=== PATIENT | female | born 1930 | race Caucasian/White ===

== ENCOUNTER 2017-06-25 21:13 | Observation (INO) | payer MEDICARE, BC ==
[2017-06-25] MEDS ORDERED: Sodium Chloride 0.9% 2.5 ML Syringe FLUSH PRN (21:35)
[2017-06-25] MEDS ORDERED: Sodium Chloride 0.9% 10 ML Syringe FLUSH PRN (21:35)
[2017-06-25] MEDS ORDERED: Sodium Chloride 0.9% 1,000 ML IV ONE (21:36)
--- NOTE | 2017-06-25 21:51 | EDM.PDOC ---
ED HPI GENERAL MEDICAL PROBLEM - General Chief Complaint: General Stated Complaint: FEELING WEAK Time Seen by Provider: 06/25/17 21:46 - History of Present Illness INITIAL COMMENTS - FREE TEXT/NARRATIVE: HISTORY AND PHYSICAL: []86-year-old female who is quite frail looking, comes from home by family with concerns over her weakness tonight unable to walk History of Present Illness: []Sister and niece reports that she has been unable to remember things and believes family members who have are still alive. Over the last several months has lost quite a bit of weight. Tonight became weak and was unable to walk. Patient has seen Dr. Chema Burton in the past. Patient has anti-hypertensive medication but does not always take it. Review of Systems: As per history of present illness and below otherwise all systems reviewed and negative. Past medical history: As per history of present illness and as reviewed below otherwise noncontributory. Surgical history: As per history of present illness and as reviewed below otherwise noncontributory. Social history: No reported history of drug or alcohol abuse. Family history: As per history of present illness and as reviewed below otherwise noncontributory. Physical exam: Frail looking elderly woman who is quite pleasant, answers questions in full sentences, HEENT: Atraumatic, normocehpalic, pupils reactive, negative for conjunctival pallor or scleral icterus, mucous membranes moist, throat clear, neck supple, nontender, trachea midline. Lungs: Clear to auscultation, breath sounds equal bilaterally, chest non tender. Heart: S1S2, regular, negative for clicks, rubs, or JVD. EKG obtained showing sinus tachycardia at 103. Abdomen: Soft, nondistended, nontender. Negative for masses or hepatossplenmegaly. Negative for costovertebral tenderness. Pelvis: Stable nontender. Genitourinary: Deferred. Rectal: Deferred Extremities: Atraumatic, negative for cords or calf pain. Neurovascular unremarkable. Neuro: Awake, alert, oriented. Cranial nerves II through XII unremarkable. Cerebellum unremarkable. Motor and sensory unremarkable throughout. Exam nonfocal. Diagnostics: [CBC CMP head CT UA urine culture] Therapeutics: []Normal saline bolus 500ml then run at 125/hr Impression: []#1 weakness #2 dementia Plan: []Admit for weakness Definitive disposition and diagnosis as appropriate pending reevaluation and review of above. Onset: Gradual Duration: Chronic, Getting Worse Location: Reports: Generalized Severity: Moderate - Related Data Allergies Allergy/AdvReac Type Severity Reaction Status Date / Time No Known Allergies Allergy Verified 06/25/17 21:24 ED ROS GENERAL - Review of Systems Review Of Systems: ROS reveals no pertinent complaints other than HPI. ED EXAM, GENERAL - Physical Exam Exam: See Below (See dictation) EKG INTERPRETATION EKG Date: 06/25/17 Rhythm: Other (Sinus tachycardia) Rate (Beats/Min): 103 Comparison: NA - No Prior EKG Course - Vital Signs Last Recorded V/S: Last Vital Signs Temp 36.6 C 06/25/17 21:24 Pulse 101 H 06/25/17 21:24 Resp 16 06/25/17 21:24 BP 93/50 L 06/25/17 21:24 Pulse Ox 97 06/25/17 21:24 - Orders/Labs/Meds Orders: Active Orders 24 hr Category Date Time Status EKG Documentation Completion [RC] STAT Care 06/25/17 21:35 Ordered Oxygen Therapy, ED [RC] ASDIRECTED Care 06/25/17 21:35 Ordered Chest 1V Frontal [CR] Stat Exams 06/25/17 21:35 Ordered Head wo Cont [CT] Stat Exams 06/25/17 21:35 Ordered CBC WITH AUTO DIFF [HEME] Stat Lab 06/25/17 21:35 Ordered COMPREHENSIVE METABOLIC PN,CMP [CHEM] Stat Lab 06/25/17 21:35 Ordered TROPONIN I [CHEM] Stat Lab 06/25/17 21:35 Ordered UA W/MICROSCOPIC [URIN] Stat Lab 06/25/17 21:35 Uncollected Sodium Chloride 0.9% [Normal Saline] 1,000 ml Med 06/25/17 21:36 Ordered IV STAT Sodium Chloride 0.9% [Saline Flush] Med 06/25/17 21:35 Ordered 10 ml FLUSH ASDIRECTED PRN Sodium Chloride 0.9% [Saline Flush] Med 06/25/17 21:35 Ordered 2.5 ml FLUSH ASDIRECTED PRN Saline Lock Insert [OM.PC] Stat Oth 06/25/17 21:35 Ordered Medication Orders Sodium Chloride (Normal Saline) 1,000 mls @ 999 mls/hr IV STAT ONE Stop: 06/25/17 22:36 Sodium Chloride (Saline Flush) 10 ml FLUSH ASDIRECTED PRN PRN Reason: Keep Vein Open Sodium Chloride (Saline Flush) 2.5 ml FLUSH ASDIRECTED PRN PRN Reason: Keep Vein Open Meds: Medications Generic Name Dose Route Start Last Admin Trade Name Freq PRN Reason Stop Dose Admin Sodium Chloride 1,000 mls @ 999 mls/hr 06/25/17 21:36 Normal Saline IV 06/25/17 22:36 STAT ONE Sodium Chloride 10 ml 06/25/17 21:35 Saline Flush FLUSH ASDIRECTED PRN Keep Vein Open Sodium Chloride 2.5 ml 06/25/17 21:35 Saline Flush FLUSH ASDIRECTED PRN Keep Vein Open Departure - Departure Time of Disposition: 21:53 Disposition: Admitted As Inpatient 66 Condition: Fair Clinical Impression: Weakness generalized Hypertension Qualifiers: Hypertension type: unspecified Qualified Code(s): I10 - Essential (primary) hypertension - Discharge Information Forms: ED Department Discharge - My Orders Last 24 Hours: My Active Orders 06/25/17 21:35 EKG Documentation Completion [RC] STAT Oxygen Therapy, ED [RC] ASDIRECTED Chest 1V Frontal [CR] Stat Head wo Cont [CT] Stat CBC WITH AUTO DIFF [HEME] Stat COMPREHENSIVE METABOLIC PN,CMP [CHEM] Stat TROPONIN I [CHEM] Stat UA W/MICROSCOPIC [URIN] Stat Sodium Chloride 0.9% [Saline Flush] 10 ml FLUSH ASDIRECTED PRN Sodium Chloride 0.9% [Saline Flush] 2.5 ml FLUSH ASDIRECTED PRN Saline Lock Insert [OM.PC] Stat 06/25/17 21:36 Sodium Chloride 0.9% [Normal Saline] 1,000 ml IV STAT - Assessment/Plan Last 24 Hours: My Active Orders 06/25/17 21:35 EKG Documentation Completion [RC] STAT Oxygen Therapy, ED [RC] ASDIRECTED Chest 1V Frontal [CR] Stat Head wo Cont [CT] Stat CBC WITH AUTO DIFF [HEME] Stat COMPREHENSIVE METABOLIC PN,CMP [CHEM] Stat TROPONIN I [CHEM] Stat UA W/MICROSCOPIC [URIN] Stat Sodium Chloride 0.9% [Saline Flush] 10 ml FLUSH ASDIRECTED PRN Sodium Chloride 0.9% [Saline Flush] 2.5 ml FLUSH ASDIRECTED PRN Saline Lock Insert [OM.PC] Stat 06/25/17 21:36 Sodium Chloride 0.9% [Normal Saline] 1,000 ml IV STAT
[2017-06-25 22:19] LABS: CHLORIDE,CL 106 mmol/L (98-110); SODIUM,NA 142 mmol/L (136-146)
[2017-06-26] MEDS: Multivitamins with Iron/Calcium/Folic Acid/Minerals Tab PO SCH (08:09)
[2017-06-26] MEDS: BETAXOLOL HCL 10 MG PO SCH (08:10)
[2017-06-26] MEDS: Hydrochlorothiazide/Triamterene 50-75 MG Tab PO SCH (08:12)
[2017-06-26] MEDS ORDERED: Hydrochlorothiazide/Triamterene 50-75 MG Tab PO SCH (09:00)
--- NOTE | 2017-06-26 11:33 | CT ---
EXAM DATE: 06/25/17 PATIENT'S AGE: 86 Patient: MARVIN SEGOVIA Facility: [place], [place] Site . Site : 1930 Study: CT Head [id number] 10:05:35 PM Ordering Physician: Doctor Marie Final Report: INDICATION: Weakness TECHNIQUE: Head CT without contrast. COMPARISON: None FINDINGS: CSF spaces: Within normal limits for age. Brain parenchyma: There are nonspecific low attenuation white matter changes consistent with chronic microvascular disease. No sign of mass, hemorrhage, or midline shift. Remote bilateral basal ganglia lacunar infarctions. Skull base and calvarium: The visualized paranasal sinuses and mastoid air cells demonstrate no acute or significant findings. The visualized orbits are grossly unremarkable. No skull fractures. There is intracranial atherosclerosis. IMPRESSION: 1. No acute findings. 2. Nonspecific white matter disease, typical of chronic microvascular disease. Please note that all CT scans at this facility use dose modulation, iterative reconstruction, and/or weight-based dosing when appropriate to reduce radiation dose to as low as reasonably achievable. Dictated by Idalia Black MD @ Jun 25 2017 10:36PM (Electronic Signature) Report Signed by Proxy. [facility]
--- NOTE | 2017-06-26 11:34 | CR ---
EXAM DATE: 06/25/17 PATIENT'S AGE: 86 Patient: MARVIN SEGOVIA Facility: [place], [place] Site . Site : 1930 Study: XRay Chest [id number]/22/2017 10:13:25 PM Ordering Physician: Doctor Marie Final Report: INDICATION: Weakness TECHNIQUE: Chest 1 view. COMPARISON: None FINDINGS: Cardiovascular and mediastinum: Heart size and vasculature are normal in caliber and appearance. Mediastinum is within normal limits. Lungs and pleural space: Possible ill-defined opacity right upper lobe. No sign of pleural effusion. No pneumothorax. Bones and soft tissues: No significant findings. IMPRESSION: Possible ill-defined opacity right upper lobe versus overlapping of lung markings. Followup recommended. Dictated by Chema Zeng MD @ 06/25/2017 10:41:38 PM Dictated by: Chema Zeng MD @ 06/25/2017 22:41:45 (Electronic Signature) Report Signed by Proxy. [facility]
[2017-06-26] MEDS: cefTRIAXone 1 GM in Premix Bag 1 BAG IV SCH (12:22)
--- NOTE | 2017-06-26 18:01 | PCM.HP ---
H&P History of Present Illness - General Date of Service: 06/26/17 Admit Problem/Dx: This is a 86-year-old female who's here secondary to weakness and confusion over the past 3 weeks. Possible dementia. Patient's sister states that she has progressively become increasingly confused speaking with people who have . Unsure about whether she is along with poor memory loss. Patient's sister denies patient having any recent falls that she is aware of. When speaking with the patient she also denies having any recent falls. Patient has not had any febrile issues, and no complaints of any nausea, vomiting, diarrhea, constipation. No shortness of breath. Increasing weakness and dementia/ shortness of breath patient's family brought her into the ER. Head CT and chest x-ray as well as basic labs were done. Decision was made to admit the patient secondary to her ambulatory status. Source of Information: Patient, Family - History of Present Illness Onset of Symptoms: Reports: Gradual - Related Data Allergies/Adverse Reactions: Allergies Allergy/AdvReac Type Severity Reaction Status Date / Time No Known Allergies Allergy Verified 06/25/17 21:24 Home Medications: Home Meds Betaxolol HCl [Betaxolol] 10 mg PO DAILY 06/25/17 [History] Multivits,Ca,Minerals/Iron/FA [One-A-Day Women's] 1 tab PO DAILY 06/25/17 [ History] Triamterene/Hydrochlorothiazid [Triamterene-HCTZ 75-50 MG] 1 tab PO DAILY [History] Past Medical History HEENT History: Reports: Impaired Vision, Macular Degeneration Cardiovascular History: Reports: High Cholesterol, Hypertension Respiratory History: Reports: None Gastrointestinal History: Reports: None Genitourinary History: Reports: None Musculoskeletal History: Reports: None Neurological History: Reports: None Psychiatric History: Reports: None Endocrine/Metabolic History: Reports: Other (See Below) Other Endocrine/Metabolic History: thyroid problem? Hematologic History: Reports: None Immunologic History: Reports: None Oncologic (Cancer) History: Reports: None Dermatologic History: Reports: None - Infectious Disease History Infectious Disease History: Reports: None - Past Surgical History Head Surgeries/Procedures: Reports: None GI Surgical History: Reports: None Female Surgical History: Reports: None Musculoskeletal Surgical History: Reports: None Oncologic Surgical History: Reports: None Dermatological Surgical History: Reports: None Social & Family History - Family History Family Medical History: Unobtainable - Tobacco Use Smoking Status *Q: Former Smoker Used Tobacco, but Quit: Yes Month Tobacco Last Used: 2012 Tobacco Use Comment: stopped smoking long time ago,more than 40 years ago Second Hand Smoke Exposure: No - Caffeine Use Caffeine Use: Reports: Coffee - Recreational Drug Use Recreational Drug Use: No H&P Review of Systems - Review of Systems: Review Of Systems: ROS reveals no pertinent complaints other than HPI. Exam - Exam Exam: See Below - Vital Signs Vital Signs: Last Vital Signs Temp 37.1 C 06/26/17 17:37 Pulse 91 06/26/17 17:37 Resp 18 06/26/17 17:37 BP 162/76 H 06/26/17 17:37 Pulse Ox 96 06/26/17 16:00 Weight: 45.9 kg - Exam General: Alert, Cooperative Neck: Supple Lungs: Clear to Auscultation, Normal Respiratory Effort Cardiovascular: Regular Rate, Regular Rhythm GI/Abdominal Exam: Soft, Abnormal Bowel Sounds Extremities: Normal Inspection, Non-Tender - Patient Data Lab Results Last 24 hrs: Laboratory Results - last 24 hr 06/26/17 06/26/17 06/26/17 Range/Units 04:52 04:52 04:52 WBC 2.52 L (4.0-11.0) K/uL RBC 3.13 L (4.30-5.90) M/uL Hgb 7.0 L (12.0-16.0) g/dL Hct 23.9 L (36.0-46.0) % MCV 76.4 L (80.0-98.0) fL MCH 22.4 L (27.0-32.0) pg MCHC 29.3 L (31.0-37.0) g/dL RDW Std Deviation 51.7 (28.0-62.0) fl RDW Coeff of Sera 19 H (11.0-15.0) % Plt Count 180 (150-400) K/uL MPV 9.30 (7.40-12.00) fL Add Manual Diff YES Neutrophils % (Manual) 53 (48.0-80.0) % Band Neutrophils % 2 % Lymphocytes % (Manual) 27 (16.0-40.0) % Monocytes % (Manual) 17 H (0.0-15.0) % Basophils % (Manual) 1 (0.0-1.5) % Nucleated RBC % 0.0 /100WBC Absolute Seg Neuts 1.3 Band Neutrophils # 0.1 Lymphocytes # (Manual) 0.7 Monocytes # (Manual) 0.4 Basophils # (Manual) 0 Nucleated RBCs # 0 K/uL Absolute Retic 81.10 H (20-80) K/uL Percent Retic 2.6 H (0.5-1.5) % Immature Retic Fraction 25 % Iron 15 L (50-170) ug/dL TIBC 297 (273-456) ug/dL % Saturation 5.05 L (20-55) % Transferrin 208 (200-400) ug/dL Vitamin B12 473 (200-1100) PG/ML Folate 9.7 (7.2-15.4) ng/mL Urine Color Urine Appearance Urine pH (5.0-8.0) Ur Specific [place] (1.001-1.035) Urine Protein (NEGATIVE) mg/dL Urine Glucose (UA) (NEGATIVE) mg/dL Urine Ketones (NEGATIVE) mg/dL Urine Occult Blood (NEGATIVE) Urine Nitrite (NEGATIVE) Urine Bilirubin (NEGATIVE) Urine Ictotest Urine Urobilinogen (<2.0) EU/dL Ur Leukocyte Esterase (NEGATIVE) Urine RBC (0-2/HPF) Urine WBC (0-5/HPF) Ur Epithelial Cells (NONE-FEW) Urine Bacteria (NEGATIVE) Urine Mucus (NONE-MOD) Blood Type Antibody Screen Crossmatch 06/26/17 06/26/17 Range/Units 05:50 12:09 WBC (4.0-11.0) K/uL RBC (4.30-5.90) M/uL Hgb (12.0-16.0) g/dL Hct (36.0-46.0) % MCV (80.0-98.0) fL MCH (27.0-32.0) pg MCHC (31.0-37.0) g/dL RDW Std Deviation (28.0-62.0) fl RDW Coeff of Sera (11.0-15.0) % Plt Count (150-400) K/uL MPV (7.40-12.00) fL Add Manual Diff Neutrophils % (Manual) (48.0-80.0) % Band Neutrophils % % Lymphocytes % (Manual) (16.0-40.0) % Monocytes % (Manual) (0.0-15.0) % Basophils % (Manual) (0.0-1.5) % Nucleated RBC % /100WBC Absolute Seg Neuts Band Neutrophils # Lymphocytes # (Manual) Monocytes # (Manual) Basophils # (Manual) Nucleated RBCs # K/uL Absolute Retic (20-80) K/uL Percent Retic (0.5-1.5) % Immature Retic Fraction % Iron (50-170) ug/dL TIBC (273-456) ug/dL % Saturation (20-55) % Transferrin (200-400) ug/dL Vitamin B12 (200-1100) PG/ML Folate (7.2-15.4) ng/mL Urine Color YELLOW Urine Appearance CLEAR Urine pH 6.0 (5.0-8.0) Ur Specific [place] 1.025 (1.001-1.035) Urine Protein TRACE (NEGATIVE) mg/dL Urine Glucose (UA) NEGATIVE (NEGATIVE) mg/dL Urine Ketones NEGATIVE (NEGATIVE) mg/dL Urine Occult Blood NEGATIVE (NEGATIVE) Urine Nitrite NEGATIVE (NEGATIVE) Urine Bilirubin SMALL H (NEGATIVE) Urine Ictotest NEGATIVE Urine Urobilinogen 1.0 (<2.0) EU/dL Ur Leukocyte Esterase MODERATE (NEGATIVE) Urine RBC 0-2 (0-2/HPF) Urine WBC 6-10 (0-5/HPF) Ur Epithelial Cells FEW (NONE-FEW) Urine Bacteria FEW (NEGATIVE) Urine Mucus LIGHT (NONE-MOD) Blood Type O POSITIVE Antibody Screen NEGATIVE Crossmatch See Detail Result Diagrams: 06/26/17 04:52 06/25/17 21:50 *Q Meaningful Use (ADM) - VTE *Q VTE Criteria *Q: - Stroke *Q Stroke Criteria *Q: - AMI *Q AMI Criteria *Q: Problem List Initiated/Reviewed/Updated: Yes Orders Last 24hrs: Active Orders 24 hr Category Date Time Status Communication Order [RC] ROUTINE Care 06/25/17 23:12 Active Fecal Occult Blood Collection [RC] ASDIRECTED Care 06/26/17 09:22 Active Telemetry Monitoring [Cardiac Monitoring] [RC] Q8H Care 06/25/17 23:06 Active Vital Signs [RC] Q4H Care 06/25/17 23:09 Active OT Evaluation and Treatment [CONS] Routine Cons 06/25/17 23:09 Active PT Evaluation and Treatment [CONS] Routine Cons 06/25/17 23:09 Active BASIC METABOLIC PANEL,BMP [CHEM] AM Lab 06/27/17 05:11 Ordered BASIC METABOLIC PANEL,BMP [CHEM] AM Lab 06/28/17 05:11 Ordered CBC WITH AUTO DIFF [HEME] AM Lab 06/27/17 05:11 Ordered CBC WITH AUTO DIFF [HEME] AM Lab 06/28/17 05:11 Ordered CULTURE URINE [RM] Routine Lab 06/26/17 10:45 Received FERRITIN [REF] Routine Lab 06/26/17 04:52 Received RED BLOOD CELLS LP [BBK] Routine Lab 06/26/17 12:09 Results TYPE AND SCREEN [BBK] Routine Lab 06/26/17 12:09 Results HCTZ/Triamterene [Maxzide 50-75 MG] Med 06/26/17 09:00 Active 1 each PO DAILY Multivitamins w-Iron/Ca/FA/Min [Thera M Plus] Med 06/26/17 09:00 Active 1 tab PO DAILY Patient's Own Medication [Ptom] Med 06/26/17 09:00 Active 1 each PO DAILY cefTRIAXone [Rocephin in Dextrose,Iso-Osm 1 GM/50 ML] 1 Med 06/26/17 12:00 Active gm Premix Bag 1 bag IV Q24H Convert IV to Saline Lock [OM.PC] Routine Oth 06/25/17 23:09 Ordered Transfuse Red Blood Cells [COMM] Routine Oth 06/26/17 11:51 Ordered Medication Orders Ceftriaxone Sodium/Dextrose 1 (gm/ Premix) 50 mls @ 100 mls/hr IV Q24H CONSUELO Last Admin: 06/26/17 12:22 Dose: 100 mls/hr Multivitamins/Minerals (Thera M Plus) 1 tab PO DAILY CONSUELO Last Admin: 06/26/17 08:09 Dose: 1 tab Betaxolol Hcl 10 Mg 1 each PO DAILY CONSUELO Last Admin: 06/26/17 08:10 Dose: Sodium Chloride (Saline Flush) 10 ml FLUSH ASDIRECTED PRN PRN Reason: Keep Vein Open Last Admin: 06/25/17 22:10 Dose: 10 ml Sodium Chloride (Saline Flush) 2.5 ml FLUSH ASDIRECTED PRN PRN Reason: Keep Vein Open Last Admin: 06/25/17 22:10 Dose: 2.5 ml Triamterene/HCTZ (Maxzide 50-75 Mg) 1 each PO DAILY CONSUELO Last Admin: 06/26/17 08:12 Dose: 1 each Assessment/Plan Comment:: This is a 86-year-old female who is presenting with gradual increasing weakness and possible dementia. #1 assessment patient's weakness patient has a hemoglobin of 7.0, and a possible UTI based on urinalysis -Patient shall be getting 2 units of blood pressure reassess patient's hemoglobin in the morning. -For the patient's possible UTI should be starting her on Rocephin -I shall be getting a fecal occult blood test PT OT should also be following the patient. We shall also have home health consult placed Patient to be admitted under observation less than 2 midnights.
[2017-06-27 08:44] LABS: CHLORIDE,CL 107 mmol/L (98-110); SODIUM,NA 138 mmol/L (136-146)
[2017-06-27] MEDS: Hydrochlorothiazide/Triamterene 50-75 MG Tab PO SCH (08:45)
[2017-06-27] MEDS: BETAXOLOL HCL 10 MG PO SCH (08:45)
[2017-06-27] MEDS: Multivitamins with Iron/Calcium/Folic Acid/Minerals Tab PO SCH (08:46)
[2017-06-27 09:39] VITALS: BP 137/85
[2017-06-27] MEDS: cefTRIAXone 1 GM in Premix Bag 1 BAG IV SCH (11:48)
[2017-06-27 12:28] LABS: CHLORIDE,CL 104 mmol/L (98-110); SODIUM,NA 140 mmol/L (136-146)
--- NOTE | 2017-07-01 19:11 | PCM.DCSUM1 ---
Discharge Summary - Hospital Course Free Text/Narrative:: Discharge Summary Date of admission: 06/26/2017 Date of discharge: 06/27/2017 Admitting diagnosis: #1. Weakness/fatigue #2. Anemia #3. Possible UTI #4. #5. Discharge diagnoses: #1. Weakness/fatigue now resolved #2. Anemia improved status post RBC transfusion #3. Chronic iron deficiency anemia #4. UTI status post antibiotics #5. Consultations: None Procedures: None Hospitalization course: Patient was admitted secondary to weakness and fatigue urine analysis indicated elevated leukocyte esterase, elevated WBC which indicated a urinary tract infection. Patient was started on Rocephin. Patient's hemoglobin dropped from slightly above 8 down to 7.0 as a result the decision was made to give the patient 2 units of red blood cells. Patient's hemoglobin improved to 11.1. Physical therapy and home health consults were placed. Patient was ambulating appropriately per physical therapy. Home health stated that the patient would be going home with the patient's sister and would be putting an application for [facility] within the week as a result home health stated the patient did not require home health assistance. Patient was stable and sent home on iron tablets as well as Bactrim for 3 days. Disposition on discharge: Home with sister Condition on discharge: Patient was stable, anemia improved, no nausea, vomiting , diarrhea, constipation. Ambulating appropriately. Discharge medications: Continuation of home medication. Iron tablets as well as Bactrim for 3 days also given. Follow-up instructions: Follow-up with primary care physician Dr. Ortiz. - Discharge Data Discharge Date: 06/27/17 Discharge Disposition: Home, Self-Care 01 Condition: Fair - Discharge Diagnosis/Problem(s) (1) Ambulatory dysfunction SNOMED Code(s): 501264836 ICD Code: R26.2 - DIFFICULTY IN WALKING, NOT ELSEWHERE CLASSIFIED Status: Acute - Patient Summary/Data Consults: Consultations 06/25/17 23:09 OT Evaluation and Treatment [CONS] Routine PT Evaluation and Treatment [CONS] Routine 06/27/17 09:07 Consult to Home Health [CONS] Routine - Patient Instructions Diet: Heart Healthy Diet Activity: As Tolerated, Rest and Relax Today Driving: Do Not Drive Showering/Bathing: May Shower Notify Provider of: Fever, Increased Pain, Swelling and Redness, Drainage, Nausea and/or Vomiting - Discharge Plan Prescriptions/Med Rec: Ferrous Sulfate 325 mg PO WITHBREAKFAST #30 tablet Sulfamethoxazole/Trimethoprim [Bactrim Ds Tablet] 1 each PO BID #6 tablet Home Medications: Home Meds Betaxolol HCl [Betaxolol] 10 mg PO DAILY 06/25/17 [History] Multivits,Ca,Minerals/Iron/FA [One-A-Day Women's] 1 tab PO DAILY 06/25/17 [ History] Triamterene/Hydrochlorothiazid [Triamterene-HCTZ 75-50 MG] 1 tab PO DAILY [History] Ferrous Sulfate 325 mg PO WITHBREAKFAST #30 tablet 06/27/17 [Rx] Sulfamethoxazole/Trimethoprim [Bactrim Ds Tablet] 1 each PO BID #6 tablet [Rx] Patient Handouts: Weakness, [id number], Hypertension, [id number], Sulfamethoxazole; Trimethoprim, SMX-TMP tablets Referrals: Jean Ortiz MD [Physician] - 07/05/17 9:30 am - Discharge Summary/Plan Comment DC Time >30 min.: No - Patient Data Vitals - Most Recent: Last Vital Signs Temp 37.1 C 06/27/17 08:00 Pulse 107 H 06/27/17 08:00 Resp 16 06/27/17 08:00 BP 137/85 06/27/17 08:00 Pulse Ox 94 L 06/27/17 08:00 Weight - Most Recent: 45.9 kg Med Orders - Current: Current Medications Discontinued Medications Sodium Chloride (Normal Saline) 1,000 mls @ 999 mls/hr IV STAT ONE Stop: 06/25/17 22:36 Last Admin: 06/25/17 22:10 Dose: 999 mls/hr Ceftriaxone Sodium/Dextrose 1 (gm/ Premix) 50 mls @ 100 mls/hr IV Q24H CONSUELO Last Admin: 06/27/17 11:48 Dose: 100 mls/hr Multivitamins/Minerals (Thera M Plus) 1 tab PO DAILY CONSUELO Last Admin: 06/27/17 08:46 Dose: 1 tab Betaxolol Hcl 10 Mg 1 each PO DAILY CONSUELO Last Admin: 06/27/17 08:45 Dose: Not Given Sodium Chloride (Saline Flush) 10 ml FLUSH ASDIRECTED PRN PRN Reason: Keep Vein Open Last Admin: 06/25/17 22:10 Dose: 10 ml Sodium Chloride (Saline Flush) 2.5 ml FLUSH ASDIRECTED PRN PRN Reason: Keep Vein Open Last Admin: 06/25/17 22:10 Dose: 2.5 ml Triamterene/HCTZ (Maxzide 50-75 Mg) each PO DAILY CONSUELO Triamterene/HCTZ (Maxzide 50-75 Mg) 1 each PO DAILY CONSUELO Last Admin: 06/27/17 08:45 Dose: 1 each *Q Meaningful Use (DIS) - VTE *Q VTE Criteria *Q: - Stroke *Q Stroke Criteria *Q: - AMI *Q AMI Criteria *Q:
== END 2017-06-27 13:55 | disposition home or self-care (01) ==
LOC: MW.ED 21:13 → MW.MS 22:55
PROVIDERS: ADMIT Family Medicine; ATTEND Family Medicine
DX: R53.1 Weakness (principal); R53.83 Other fatigue; D50.9 Iron deficiency anemia, unspecified; E78.00 Pure hypercholesterolemia, unspecified; I10 Essential (primary) hypertension; H35.30 Unspecified macular degeneration; Z87.891 Personal history of nicotine dependence; Z79.899 Other long term (current) drug therapy
CPT/HCPCS: 36415; 36430; 70450; 71010; 80048; 80053; 81001; 82607; 82728; 82746; 82962; 83550; 83735; 84443; 84484; 85025; 85045; 86850; 86900; 86901; 86920; 86921; 86922; 87086; 93005; 96361; 96365; 96366; 97161; 99285; A9270; G0378; J0696; J7040; P9016; 96360; 99283

== ENCOUNTER 2017-08-17 07:02 | Emergency (ER) | payer MEDICARE, BC ==
--- NOTE | 2017-08-17 07:23 | EDM.PDOC ---
ED HPI GENERAL MEDICAL PROBLEM - General Chief Complaint: General Stated Complaint: FELL Time Seen by Provider: 08/17/17 07:20 Source of Information: Reports: Patient - History of Present Illness INITIAL COMMENTS - FREE TEXT/NARRATIVE: HISTORY AND PHYSICAL: History of present illness: []Patient with history of dementia presents post fall while at the retirement She was generally unreliable in her history, she states she does not know that she fell and that she did fall but does not know any details surrounding she does not remember. She does have a skin tear on her right forearm which has been bandaged by [facility] staff. No staff accompanies the patient and we did not receive a call that she would be coming. She arrives by [employer] bus. She is pleasant in no distress when examining her hips or pelvis does seem stable although she does complain of some tenderness She denies that she is generally weak no fever nausea vomiting diarrhea constipation chest pain shortness breath headache dizziness or palpitation no bowel or urine symptoms. Patient is unreliable in her history Review of systems: As per history of present illness and below otherwise all systems reviewed and negative. Past medical history: As per history of present illness and as reviewed below otherwise noncontributory. Surgical history: As per history of present illness and as reviewed below otherwise noncontributory. Social history: No reported history of drug or alcohol abuse. Family history: As per history of present illness and as reviewed below otherwise noncontributory. Physical exam: HEENT: Atraumatic, normocephalic, pupils reactive, negative for conjunctival pallor or scleral icterus, mucous membranes moist, throat clear, neck supple, nontender, trachea midline. Lungs: Clear to auscultation, breath sounds equal bilaterally, chest nontender. Heart: S1S2, regular, negative for clicks, rubs, or JVD. Abdomen: Soft, nondistended, nontender. Negative for masses or hepatosplenomegaly. Negative for costovertebral tenderness. Pelvis: Stable nontender. Genitourinary: Deferred. Rectal: Deferred. Extremities: Atraumatic, negative for cords or calf pain. Neurovascular unremarkable. Neuro: Awake, alert, oriented. Cranial nerves II through XII unremarkable. Cerebellum unremarkable. Motor and sensory unremarkable throughout. Exam nonfocal. Skin she does have a skin tear approximately an inch and a quarter in diameter that is been Steri-Stripped by [facility] staff and his nonbleeding at this time Diagnostics: []CBC CMP troponin UA EKG Chest [address] without contrast Cervical spine without contrast Pelvis Therapeutics: [] Impression: []Skin tear right forearm Fall history Dementia and chronic history of baseline Definitive disposition and diagnosis as appropriate pending reevaluation and review of above. left arm;leg;back Pain Score (Numeric/FACES): 10 - Related Data Allergies Allergy/AdvReac Type Severity Reaction Status Date / Time No Known Allergies Allergy Verified 08/17/17 07:17 Home Meds: Home Meds Betaxolol HCl [Betaxolol] 10 mg PO DAILY 06/25/17 [History] Multivits,Ca,Minerals/Iron/FA [One-A-Day Women's] 1 tab PO DAILY 06/25/17 [ History] Triamterene/Hydrochlorothiazid [Triamterene-HCTZ 75-50 MG] 1 tab PO DAILY [History] Ferrous Sulfate 325 mg PO WITHBREAKFAST #30 tablet 06/27/17 [Rx] Dextran 70/Hypromellose/PF [Artificial Tears Drops] 1 each EYEBOTH BID 08/17/17 [History] Magnesium Hydroxide [Milk of Magnesia] 30 ml PO DAILY PRN 08/17/17 [History] Past Medical History HEENT History: Reports: Impaired Vision, Macular Degeneration Cardiovascular History: Reports: High Cholesterol, Hypertension Respiratory History: Reports: None Gastrointestinal History: Reports: None Genitourinary History: Reports: None Musculoskeletal History: Reports: None Neurological History: Reports: None Psychiatric History: Reports: None Endocrine/Metabolic History: Reports: Other (See Below) Other Endocrine/Metabolic History: thyroid problem? Hematologic History: Reports: None Immunologic History: Reports: None Oncologic (Cancer) History: Reports: None Dermatologic History: Reports: None - Infectious Disease History Infectious Disease History: Reports: None - Past Surgical History Head Surgeries/Procedures: Reports: None GI Surgical History: Reports: None Female Surgical History: Reports: None Musculoskeletal Surgical History: Reports: None Oncologic Surgical History: Reports: None Dermatological Surgical History: Reports: None Social & Family History - Family History Family Medical History: Unobtainable - Tobacco Use Smoking Status *Q: Former Smoker Used Tobacco, but Quit: Yes Month Tobacco Last Used: 2012 Second Hand Smoke Exposure: No - Caffeine Use Caffeine Use: Reports: Coffee - Recreational Drug Use Recreational Drug Use: No ED ROS GENERAL - Review of Systems Review Of Systems: ROS reveals no pertinent complaints other than HPI. ED EXAM, GENERAL - Physical Exam Exam: See Below Course - Vital Signs Last Recorded V/S: Last Vital Signs Temp 36.1 C 08/17/17 07:02 Pulse 73 08/17/17 08:28 Resp 20 08/17/17 08:28 BP 148/66 H 08/17/17 08:28 Pulse Ox 94 L 08/17/17 08:28 - Orders/Labs/Meds Orders: Active Orders 24 hr Category Date Time Status EKG Documentation Completion [RC] STAT Care 08/17/17 07:18 Active Cervical Spine wo Cont [CT] Stat Exams 08/17/17 07:18 Taken Chest 1V Frontal [CR] Stat Exams 08/17/17 07:18 Taken Head wo Cont [CT] Stat Exams 08/17/17 07:18 Taken Pelvis 1V or 2V [CR] Stat Exams 08/17/17 07:18 Ordered Labs: Laboratory Tests 08/17/17 08/17/17 08/17/17 Range/Units 07:39 07:39 07:39 WBC 4.93 (4.0-11.0) K/uL RBC 3.84 L (4.30-5.90) M/uL Hgb 9.3 L (12.0-16.0) g/dL Hct 29.9 L (36.0-46.0) % MCV 77.9 L (80.0-98.0) fL MCH 24.2 L (27.0-32.0) pg MCHC 31.1 (31.0-37.0) g/dL RDW Std Deviation 54.8 (28.0-62.0) fl RDW Coeff of Sera 19 H (11.0-15.0) % Plt Count 245 (150-400) K/uL MPV 9.10 (7.40-12.00) fL Neut % (Auto) 72.2 (48.0-80.0) % Lymph % (Auto) 13.4 L (16.0-40.0) % [place] % (Auto) 14.0 (0.0-15.0) % Eos % (Auto) 0.2 (0.0-7.0) % Baso % (Auto) 0.2 (0.0-1.5) % Neut # (Auto) 3.6 (1.4-5.7) K/uL Lymph # (Auto) 0.7 (0.6-2.4) K/uL [place] # (Auto) 0.7 (0.0-0.8) K/uL Eos # (Auto) 0.0 (0.0-0.7) K/uL Baso # (Auto) 0.0 (0.0-0.1) K/uL Nucleated RBC % 0.0 /100WBC Nucleated RBCs # 0 K/uL Sodium 138 (136-146) mmol/L Potassium 3.3 L (3.5-5.1) mmol/L Chloride 105 (98-110) mmol/L Carbon Dioxide 22 (21-31) mmol/L BUN 28 H (6.0-23.0) mg/dL Creatinine 0.9 (0.6-1.5) mg/dL Est Cr Clr Drug Dosing TNP Estimated GFR (MDRD) 59.4 ml/min Glucose 117 H (60-110) mg/dL Calcium 9.4 (8.8-10.8) mg/dL Total Bilirubin 0.5 (0.1-1.5) mg/dL AST 24 (5-40) IU/L ALT 17 (8-54) IU/L Alkaline Phosphatase 64 (40-150) Troponin I < 0.10 (0.0-0.29) NG/ML Total Protein 6.6 (6.0-8.0) g/dL Albumin 3.1 L (3.4-4.8) g/dL Globulin 3.5 (2.0-3.5) g/dL Albumin/Globulin Ratio 0.9 L (1.3-2.8) Departure - Departure Time of Disposition: 08:58 Disposition: DC/Tfer to Skilled Nursing Care 63 Condition: Good Clinical Impression: Skin tear - Discharge Information Referrals: Jean Ortiz MD [Primary Care Provider] - Forms: ED Department Discharge Additional Instructions: Patient returned [facility] home Standard wound care Keep wound clean and dry for [address] head cervical spine performed no acute process, one view chest and pelvis performed no acute process - My Orders Last 24 Hours: My Active Orders 08/17/17 07:18 EKG Documentation Completion [RC] STAT Cervical Spine wo Cont [CT] Stat Chest 1V Frontal [CR] Stat Head wo Cont [CT] Stat Pelvis 1V or 2V [CR] Stat - Assessment/Plan Last 24 Hours: My Active Orders 08/17/17 07:18 EKG Documentation Completion [RC] STAT Cervical Spine wo Cont [CT] Stat Chest 1V Frontal [CR] Stat Head wo Cont [CT] Stat Pelvis 1V or 2V [CR] Stat
[2017-08-17 08:07] LABS: CHLORIDE,CL 105 mmol/L (98-110); SODIUM,NA 138 mmol/L (136-146)
[2017-08-17 11:36] VITALS: BP 152/92
--- NOTE | 2017-08-19 10:57 | CT ---
EXAM DATE: 08/17/17 PATIENT'S AGE: 86 Patient: MARVIN SEGOVIA Facility: [place], [place] Site Site : 30 Study: CT Spine Cervical [id number]/14/2017 8:28:33 AM Ordering Physician: TEN Final Report: Fell at home Technique: Cervical spine CT scan with coronal sagittal reformat images obtained. Findings : Normal height of the cervical vertebral bodies.Advanced degenerative change of the cervical spine primarily along C4-C7 with intervertebral disk space narrowing and osteophytic changes. Mild 1 mm anterolisthesis of C3 on C4. 1 mm retrolisthesis of C4 on C5. Lateral masses align normally with C2. No acute cervical spine fracture. The prevertebral soft tissues are within normal limits. No pneumothorax in the lung apices. Impression: 1. No acute cervical spine fracture. Advanced degenerative change of the cervical spine primarily along see C4 through C7. 1 millimeter anterolisthesis of C4 on C5, 1 millimeter retrolisthesis of C3 on C4 likely degenerative. Please note that all CT scans at this facility use dose modulation, iterative reconstruction, and/or weight-based dosing when appropriate to reduce radiation dose to as low as reasonably achievable. Dictated by Vania Zimmerman MD @ Aug 17 2017 8:43AM (Electronic Signature) Report Signed by Proxy. CHUY
--- NOTE | 2017-08-19 10:57 | CT ---
EXAM DATE: 08/17/17 PATIENT'S AGE: 86 Patient: MARVIN SEGOVIA Facility: [place], [place] Site Site : 30 Study: CT Head [id number]/14/2017 8:26:30 AM Ordering Physician: TEN Final Report: INDICATION: Fell at home. No memory of incident. Technique: CT head without IV contrast. Comparison: CT head 06/25/2017. Findings: Moderately advanced vascular calcifications. Severe confluent and patchy abnormal low density in the white matter both cerebral hemispheres is fairly stable and although nonspecific would be consistent with severe small vessel ischemic disease. Moderate cerebral atrophy and mild to moderate cerebellar atrophy fairly stable. No acute intracranial hemorrhage, edema or mass effect. Ventricles are slightly prominent consistent the degree of atrophy. Small old lacunar infarcts in the brain bilaterally fairly stable. Remainder negative. Impression: Stable head CT with no acute disease. Moderately prominent chronic intracranial disease as detailed above. Please note that all CT scans at this facility use dose modulation, iterative reconstruction, and/or weight-based dosing when appropriate to reduce radiation dose to as low as reasonably achievable. Dictated by Bony Marcial MD @ Aug 17 2017 8:27AM (Electronic Signature) Report Signed by Proxy. CHUY
--- NOTE | 2017-08-19 10:58 | CR ---
EXAM DATE: 08/17/17 PATIENT'S AGE: 86 Patient: MARVIN SEGOVIA Facility: [place], [place] Site . Site : 1930 Study: XRay Chest [id number]/14/2017 8:36:07 AM Ordering Physician: Doctor Marie Final Report: Fall portable chest comparison chest x-ray 06/25/2017 Findings : Stable cardiac mediastinal silhouette. Low lung volumes. Old bilateral posterior rib fractures. No acute airspace interstitial process. No effusion. No pneumothorax. Impression: 1. No acute pulmonary process. Dictated by Vania Zimmerman MD @ Aug 17 2017 8:54AM (Electronic Signature) Report Signed by Proxy. CHUY
--- NOTE | 2017-08-19 10:59 | CR ---
EXAM DATE: 08/17/17 PATIENT'S AGE: 86 Patient: MARVIN SEGOVIA Facility: [place], [place] Site . Site : 1930 Study: XRay Pelvis [id number]/14/2017 8:36:51 AM Ordering Physician: Doctor Marie Final Report: INDICATION: Fall. Technique: AP pelvis Comparison: No comparison studies are available. Finding : Normal alignment. Bony pelvis appears intact. There is no for acute fractures or dislocations seen. Vascular calcifications. Impression: 1. No acute fractures. Dictated by Vania Zimmerman MD @ Aug 17 2017 8:56AM (Electronic Signature) Report Signed by Proxy. [facility] MEDICAL CENTERFred
--- NOTE | 2017-08-19 11:00 | CR ---
EXAM DATE: 08/17/17 PATIENT'S AGE: 86 Patient: MARVIN SEGOVIA Facility: [place], [place] Site . Site : 1930 Study: XRay Spine Lumbar [id number]/14/2017 10:23:23 AM Ordering Physician: Walker Morris Final Report: INDICATION: Pain. Technique: Lumbar spine 3 views. Findings: Moderate osteopenia. Assuming there are 5 lumbar type vertebral bodies with S1 being a transitional vertebral body, there is a marked compression fracture deformity of indeterminate age involving the T12 vertebral body resulting kyphosis. Moderately prominent degenerative changes involving the lower thoracic and lumbar spine diffusely with multilevel moderate to marked interspace narrowing and degenerative disc disease. Moderate lumbar facet arthropathy. Moderate vascular calcifications. Mild degenerative changes in the SI joints. Nonspecific moderate increased gas distention of bowel loops in the right knee abdomen especially on the right. Scattered moderate stool in the colon. Remainder negative. Dictated by Bony Marcial MD @ Aug 17 2017 10:40AM (Electronic Signature) Report Signed by Proxy. CHUY
== END 2017-08-17 11:34 ==
LOC: MW.ED 07:02
DX: S51.811A Laceration without foreign body of right forearm, initial encounter (principal); M48.54XA Collapsed vertebra, not elsewhere classified, thoracic region, initial encounter for fracture; I10 Essential (primary) hypertension; E78.00 Pure hypercholesterolemia, unspecified; Z87.891 Personal history of nicotine dependence; Z79.899 Other long term (current) drug therapy; W19.XXXA Unspecified fall, initial encounter; Y92.129 Unspecified place in nursing home as the place of occurrence of the external cause; Z91.81 History of falling
CPT/HCPCS: 36415; 70450; 70450-26; 71010; 71010-26; 72100; 72100-26; 72125; 72125-26; 72170; 72170-26; 80053; 84484; 85025; 93005; 99283; 99284-25

== ENCOUNTER 2017-08-19 09:43 | Inpatient (IN) | payer MEDICARE, BC ==
--- NOTE | 2017-08-19 10:12 | CR ---
EXAMINATION: Portable chest radiograph. HISTORY: Weakness. Comparison: 08/17/2017, 06/25/2017. FINDINGS: The trachea is midline. The heart is mildly prominent in size. The cardiomediastinal silhouette is wi thin normal limits. No pulmonary infiltrates, effusions or pneumothorax. Chronic interstitial promine nce is noted. Degenerative changes are noted within the right shoulder. The osseous structures otherwise appear ost eopenic. IMPRESSION: No acute cardiopulmonary process.
--- NOTE | 2017-08-19 10:16 | CT ---
EXAMINATION: Non contrast CT head. Coronal and sagittal reformats. HISTORY: Stroke Comparison: 08/17/2017. FINDINGS: No evidence of intra or extra axial hemorrhage, mass, midline shift, hydrocephalus or edema. Mild ge neralized atrophy and symmetric ventricular prominence. Moderate periventricular and subcortical whit e matter hypodensities noted. There is loss of hart-white matter differentiation and a small area wit hin the right frontoparietal distribution. No abnormal intracranial calcifications are detected. No evidence of substantial vascular calcificat ions. The paranasal sinuses and mastoid air cells are well aerated without substantial findings. Th e pituitary fossa appears unremarkable. The calvarium is intact. No evidence of skull fracture. IMPRESSION: 1. Acute to subacute small cortical infarct within the right frontoparietal distribution. 2. Moderate small vessel ischemic changes.
--- NOTE | 2017-08-19 10:42 | EDM.PDOC ---
ED HPI GENERAL MEDICAL PROBLEM - General Chief Complaint: Neuro Symptoms/Deficits Stated Complaint: AMBULANCE Time Seen by Provider: 08/19/17 09:45 Source of Information: Reports: Patient (History of dementia) History Limitations: Reports: Other - History of Present Illness INITIAL COMMENTS - FREE TEXT/NARRATIVE: HISTORY AND PHYSICAL: History of present illness: A 86-year-old female with significant past medical history of dementia presenting with neurological symptoms/weakness of left side of body that was appreciated this morning at the senior care. Patient is a poor historian. Timeline for when symptoms started are uncertain. Unclear in terms of senior care when symptoms start as well as senior care did have a nursing shift change during this timeframe. Patient states that she woke up this morning feeling sore all over, she did state that) morning. Unsure in terms of neurological dysfunction why she is here. Review of systems: As per history of present illness and below otherwise all systems reviewed and negative. Past medical history: As per history of present illness and as reviewed below otherwise noncontributory. Surgical history: As per history of present illness and as reviewed below otherwise noncontributory. Social history: No reported history of drug or alcohol abuse. Family history: As per history of present illness and as reviewed below otherwise noncontributory. Physical exam: HEENT: Atraumatic, normocephalic, pupils reactive, negative for conjunctival pallor or scleral icterus, mucous membranes moist, throat clear, neck supple, nontender, trachea midline. Lungs: Clear to auscultation, breath sounds equal bilaterally, chest nontender. Heart: S1S2, regular, negative for clicks, rubs, or JVD. Abdomen: Soft, nondistended, nontender. Negative for masses or hepatosplenomegaly. Negative for costovertebral tenderness. Pelvis: Stable nontender. Genitourinary: Deferred. Rectal: Deferred. Extremities: Left-sided extremity weakness of the upper limb. Diagnostics: EKG CT of head- acute to subacute small cortical infarct Labs pending Therapeutics: Normal saline aspirin Impression: 86-year-old female presenting with neurological dysfunction being admitted for observation for stroke rule out. Plan: Admit to inpatient secondary to stroke. Definitive disposition and diagnosis as appropriate pending reevaluation and review of above. Treatments PROPULSION SYSTEMS ENGINEER: Reports: Oxygen, Other (see below) Other Treatments PROPULSION SYSTEMS ENGINEER: Blood Glucose 220 enroute Back Pain Score (Numeric/FACES): 6 - Related Data Allergies Allergy/AdvReac Type Severity Reaction Status Date / Time No Known Allergies Allergy Verified 08/17/17 07:17 Home Meds: Home Meds Betaxolol HCl [Betaxolol] 10 mg PO DAILY 06/25/17 [History] Multivits,Ca,Minerals/Iron/FA [One-A-Day Women's] 1 tab PO DAILY 06/25/17 [ History] Triamterene/Hydrochlorothiazid [Triamterene-HCTZ 75-50 MG] 1 tab PO DAILY [History] Ferrous Sulfate 325 mg PO WITHBREAKFAST #30 tablet 06/27/17 [Rx] Dextran 70/Hypromellose/PF [Artificial Tears Drops] 1 each EYEBOTH BID 08/17/17 [History] Magnesium Hydroxide [Milk of Magnesia] 30 ml PO DAILY PRN 08/17/17 [History] Acetaminophen [Tylenol] 650 mg PO Q6H PRN 08/19/17 [History] traMADol HCl [Ultram] 50 mg PO Q12H PRN 08/19/17 [History] Past Medical History HEENT History: Reports: Impaired Vision, Macular Degeneration Cardiovascular History: Reports: High Cholesterol, Hypertension Respiratory History: Reports: None Gastrointestinal History: Reports: None Genitourinary History: Reports: None Musculoskeletal History: Reports: None Neurological History: Reports: None Other Neuro History: disorientation;dementia Psychiatric History: Reports: None Endocrine/Metabolic History: Reports: Other (See Below) Other Endocrine/Metabolic History: thyroid problem? Hematologic History: Reports: None Immunologic History: Reports: None Oncologic (Cancer) History: Reports: None Dermatologic History: Reports: None - Infectious Disease History Infectious Disease History: Reports: None - Past Surgical History Head Surgeries/Procedures: Reports: None GI Surgical History: Reports: None Female Surgical History: Reports: None Musculoskeletal Surgical History: Reports: None Oncologic Surgical History: Reports: None Dermatological Surgical History: Reports: None Social & Family History - Family History Family Medical History: Unobtainable - Tobacco Use Smoking Status *Q: Former Smoker Used Tobacco, but Quit: Yes Month Tobacco Last Used: 2012 Second Hand Smoke Exposure: No - Caffeine Use Caffeine Use: Reports: Coffee Caffeine Use Comment: 2 cups daily - Recreational Drug Use Recreational Drug Use: No ED ROS GENERAL - Review of Systems Review Of Systems: ROS reveals no pertinent complaints other than HPI. ED EXAM, NEURO - Physical Exam Exam: See Below (see history presenting illness) Course - Vital Signs Last Recorded V/S: Last Vital Signs Temp 36.4 C 08/19/17 09:43 Pulse 68 08/19/17 09:43 Resp 18 08/19/17 09:43 BP 143/74 H 08/19/17 09:43 Pulse Ox 93 L 08/19/17 09:43 - Orders/Labs/Meds Orders: Active Orders 24 hr Category Date Time Status EKG Documentation Completion [RC] STAT Care 08/19/17 09:55 Active CKMB [CHEM] Stat Lab 08/19/17 10:18 Received COMPREHENSIVE METABOLIC PN,CMP [CHEM] Stat Lab 08/19/17 10:18 Received CREATINE KINASE,CK [CHEM] Stat Lab 08/19/17 10:18 Received UA W/MICROSCOPIC [URIN] Stat Lab 08/19/17 09:54 Uncollected Sodium Chloride 0.9% [Normal Saline] 1,000 ml Med 08/19/17 11:00 Active IV STAT Medication Orders Sodium Chloride (Normal Saline) 1,000 mls @ 125 mls/hr IV STAT CONSUELO Labs: Laboratory Tests 08/19/17 08/19/17 08/19/17 Range/Units 10:18 10:18 10:18 WBC 6.35 (4.0-11.0) K/uL RBC 3.70 L (4.30-5.90) M/uL Hgb 9.0 L (12.0-16.0) g/dL Hct 28.8 L (36.0-46.0) % MCV 77.8 L (80.0-98.0) fL MCH 24.3 L (27.0-32.0) pg MCHC 31.3 (31.0-37.0) g/dL RDW Std Deviation 55.1 (28.0-62.0) fl RDW Coeff of Sera 19 H (11.0-15.0) % Plt Count 237 (150-400) K/uL MPV 9.20 (7.40-12.00) fL Neut % (Auto) 79.8 (48.0-80.0) % Lymph % (Auto) 8.3 L (16.0-40.0) % [place] % (Auto) 11.7 (0.0-15.0) % Eos % (Auto) 0.2 (0.0-7.0) % Baso % (Auto) 0.0 (0.0-1.5) % Neut # (Auto) 5.1 (1.4-5.7) K/uL Lymph # (Auto) 0.5 L (0.6-2.4) K/uL [place] # (Auto) 0.7 (0.0-0.8) K/uL Eos # (Auto) 0.0 (0.0-0.7) K/uL Baso # (Auto) 0.0 (0.0-0.1) K/uL Nucleated RBC % 0.0 /100WBC Nucleated RBCs # 0 K/uL INR 1.04 (0.86-1.11) Troponin I < 0.10 (0.0-0.29) NG/ML Meds: Medications Generic Name Dose Route Start Last Admin Trade Name Freq PRN Reason Stop Dose Admin Sodium Chloride 1,000 mls @ 125 mls/hr 08/19/17 11:00 Normal Saline IV STAT CONSUELO Discontinued Medications Generic Name Dose Route Start Last Admin Trade Name Freq PRN Reason Stop Dose Admin Aspirin 324 mg 08/19/17 10:46 Aspirin PO 08/19/17 10:47 ONETIME ONE Departure - Departure Time of Disposition: 10:55 Disposition: Admitted As Inpatient 66 Condition: Good Clinical Impression: Stroke, Neurological dysfunction, Dementia - Discharge Information Additional Instructions: Diagnosis; acute to subacute small cortical infarct Plan: Patient to be admitted to the floor for ischemic stroke management
[2017-08-19] MEDS ORDERED: Aspirin 81 MG Tab.Chew PO ONE (10:46)
[2017-08-19 10:53] LABS: CHLORIDE,CL 102 mmol/L (98-110); SODIUM,NA 138 mmol/L (136-146)
[2017-08-19] MEDS: Sodium Chloride 0.9% 1,000 ML IV SCH ×2 (11:01→19:22)
[2017-08-19] MEDS ORDERED: Acetaminophen 325 MG Tab PO PRN (11:11)
--- NOTE | 2017-08-19 11:36 | PCM.HP ---
<Baluch,Kwame - Last Filed: 08/19/17 12:39> H&P History of Present Illness - General Date of Service: 08/19/17 Admit Problem/Dx: Admission Diagnosis/Problem Admission Diagnosis/Problem CVA, Cerebrovascular accident - History of Present Illness Initial Comments - Free Text/Narative: A 86-year-old female resident of [facility] admitted for Acute ischemic stroke. She has a pmh of HTN, Hyperlipidemia, Dementia and Vision Loss. She presented to ED with left sided weakness. Due to her dementia she is a poor historian. She complains of generalized pain all over but otherwise does not seem to realize that her arm is weak. ED Course: -EKG, Troponin, CKMB, UA, CBC CT Head (acute to subacute small cortical infarct) -IV NS, ASA 325 Back Pain Score (Numeric/FACES): 6 - Related Data Allergies/Adverse Reactions: Allergies Allergy/AdvReac Type Severity Reaction Status Date / Time No Known Allergies Allergy Verified 08/17/17 07:17 Home Medications: Home Meds Betaxolol HCl [Betaxolol] 10 mg PO DAILY 06/25/17 [History] Multivits,Ca,Minerals/Iron/FA [One-A-Day Women's] 1 tab PO DAILY 06/25/17 [ History] Triamterene/Hydrochlorothiazid [Triamterene-HCTZ 75-50 MG] 1 tab PO DAILY [History] Dextran 70/Hypromellose/PF [Artificial Tears Drops] 1 drop EYEBOTH BID 08/17/17 [History] Magnesium Hydroxide [Milk of Magnesia] 30 ml PO DAILY PRN 08/17/17 [History] Acetaminophen [Tylenol] 650 mg PO Q6H PRN 08/19/17 [History] Ferrous Sulfate 325 mg PO WITHBREAKFAST 08/19/17 [History] traMADol HCl [Ultram] 50 mg PO Q12H PRN 08/19/17 [History] Past Medical History HEENT History: Reports: Impaired Vision, Macular Degeneration Cardiovascular History: Reports: High Cholesterol, Hypertension Respiratory History: Reports: None Gastrointestinal History: Reports: None Genitourinary History: Reports: None Musculoskeletal History: Reports: None Neurological History: Reports: None Other Neuro History: disorientation;dementia Psychiatric History: Reports: None Endocrine/Metabolic History: Reports: Other (See Below) Other Endocrine/Metabolic History: thyroid problem? Hematologic History: Reports: None Immunologic History: Reports: None Oncologic (Cancer) History: Reports: None Dermatologic History: Reports: None - Infectious Disease History Infectious Disease History: Reports: None - Past Surgical History Head Surgeries/Procedures: Reports: None GI Surgical History: Reports: None Female Surgical History: Reports: None Musculoskeletal Surgical History: Reports: None Oncologic Surgical History: Reports: None Dermatological Surgical History: Reports: None Social & Family History - Family History Family Medical History: Unobtainable - Tobacco Use Smoking Status *Q: Former Smoker Used Tobacco, but Quit: Yes Month Tobacco Last Used: 2012 Second Hand Smoke Exposure: No - Caffeine Use Caffeine Use: Reports: Coffee Caffeine Use Comment: 2 cups daily - Recreational Drug Use Recreational Drug Use: No H&P Review of Systems - Review of Systems: Review Of Systems: Unable To Obtain (Patient complains only of pain all over) Exam - Exam Exam: See Below - Vital Signs Vital Signs: Last Vital Signs Temp 36.4 C 08/19/17 09:43 Pulse 68 08/19/17 09:43 Resp 18 08/19/17 09:43 BP 143/74 H 08/19/17 09:43 Pulse Ox 93 L 08/19/17 09:43 Weight: 45.9 kg - Exam General: No: Alert, Oriented HEENT: Conjunctiva Clear Neck: Supple, +2 Carotid Pulse wo Bruit Lungs: Clear to Auscultation, Normal Respiratory Effort Cardiovascular: Regular Rate, Regular Rhythm GI/Abdominal Exam: Normal Bowel Sounds, Soft, Non-Tender, No Distention Peripheral Pulses: 2+: Carotid (L), Carotid (R) Skin: Warm, Dry, Intact Neuro Extensive - Mental Status: Other (Patient is alert to person and place. Baseline vision impairment. Sensation to light touch, vibration and temperature is intact throughout. Right sided facial drooping. Motor strength 2/5 at RUE, 1/ 5 at RLE, 0/5 at LUE/Left upper leg/left lower leg, 1/5 at left digits. right babinski negative. left babinski positive. All reflexes diminished throughout. ) - Patient Data Lab Results Last 24 hrs: Laboratory Results - last 24 hr 08/19/17 08/19/17 08/19/17 Range/Units 10:18 10:18 10:18 WBC 6.35 (4.0-11.0) K/uL RBC 3.70 L (4.30-5.90) M/uL Hgb 9.0 L (12.0-16.0) g/dL Hct 28.8 L (36.0-46.0) % MCV 77.8 L (80.0-98.0) fL MCH 24.3 L (27.0-32.0) pg MCHC 31.3 (31.0-37.0) g/dL RDW Std Deviation 55.1 (28.0-62.0) fl RDW Coeff of Sera 19 H (11.0-15.0) % Plt Count 237 (150-400) K/uL MPV 9.20 (7.40-12.00) fL Neut % (Auto) 79.8 (48.0-80.0) % Lymph % (Auto) 8.3 L (16.0-40.0) % Todd % (Auto) 11.7 (0.0-15.0) % Eos % (Auto) 0.2 (0.0-7.0) % Baso % (Auto) 0.0 (0.0-1.5) % Neut # (Auto) 5.1 (1.4-5.7) K/uL Lymph # (Auto) 0.5 L (0.6-2.4) K/uL Todd # (Auto) 0.7 (0.0-0.8) K/uL Eos # (Auto) 0.0 (0.0-0.7) K/uL Baso # (Auto) 0.0 (0.0-0.1) K/uL Nucleated RBC % 0.0 /100WBC Nucleated RBCs # 0 K/uL INR 1.04 (0.86-1.11) Sodium 138 (136-146) mmol/L Potassium 3.7 (3.5-5.1) mmol/L Chloride 102 (98-110) mmol/L Carbon Dioxide 23 (21-31) mmol/L BUN 38 H (6.0-23.0) mg/dL Creatinine 1.3 (0.6-1.5) mg/dL Est Cr Clr Drug Dosing TNP Estimated GFR (MDRD) 38.8 ml/min Glucose 119 H (60-110) mg/dL Calcium 9.5 (8.8-10.8) mg/dL Total Bilirubin 0.7 (0.1-1.5) mg/dL AST 24 (5-40) IU/L ALT 15 (8-54) IU/L Alkaline Phosphatase 66 (40-150) Creatine Kinase 25 (9-236) IU/L CK-MB (CK-2) 0.7 (0-6.6) ng/ml Troponin I (0.0-0.29) NG/ML Total Protein 6.8 (6.0-8.0) g/dL Albumin 3.2 L (3.4-4.8) g/dL Globulin 3.6 H (2.0-3.5) g/dL Albumin/Globulin Ratio 0.9 L (1.3-2.8) //17 Range/Units 10:18 WBC (4.0-11.0) K/uL RBC (4.30-5.90) M/uL Hgb (12.0-16.0) g/dL Hct (36.0-46.0) % MCV (80.0-98.0) fL MCH (27.0-32.0) pg MCHC (31.0-37.0) g/dL RDW Std Deviation (28.0-62.0) fl RDW Coeff of Sera (11.0-15.0) % Plt Count (150-400) K/uL MPV (7.40-12.00) fL Neut % (Auto) (48.0-80.0) % Lymph % (Auto) (16.0-40.0) % Todd % (Auto) (0.0-15.0) % Eos % (Auto) (0.0-7.0) % Baso % (Auto) (0.0-1.5) % Neut # (Auto) (1.4-5.7) K/uL Lymph # (Auto) (0.6-2.4) K/uL Todd # (Auto) (0.0-0.8) K/uL Eos # (Auto) (0.0-0.7) K/uL Baso # (Auto) (0.0-0.1) K/uL Nucleated RBC % /100WBC Nucleated RBCs # K/uL INR (0.86-1.11) Sodium (136-146) mmol/L Potassium (3.5-5.1) mmol/L Chloride (98-110) mmol/L Carbon Dioxide (21-31) mmol/L BUN (6.0-23.0) mg/dL Creatinine (0.6-1.5) mg/dL Est Cr Clr Drug Dosing Estimated GFR (MDRD) ml/min Glucose (60-110) mg/dL Calcium (8.8-10.8) mg/dL Total Bilirubin (0.1-1.5) mg/dL AST (5-40) IU/L ALT (8-54) IU/L Alkaline Phosphatase (40-150) Creatine Kinase (9-236) IU/L CK-MB (CK-2) (0-6.6) ng/ml Troponin I < 0.10 (0.0-0.29) NG/ML Total Protein (6.0-8.0) g/dL Albumin (3.4-4.8) g/dL Globulin (2.0-3.5) g/dL Albumin/Globulin Ratio (1.3-2.8) Result Diagrams: 08/19/17 10:18 08/19/17 10:18 *Q Meaningful Use (ADM) - VTE *Q VTE Criteria *Q: - Stroke *Q Stroke Criteria *Q: - AMI *Q AMI Criteria *Q: Problem List Initiated/Reviewed/Updated: Yes Orders Last 24hrs: Active Orders 24 hr Category Date Time Status Admission Status [Patient Status] [ADT] Stat ADT 08/19/17 11:02 Active Patient Status [ADT] Routine ADT 08/19/17 11:11 Active Antiembolic Devices [RC] PER UNIT ROUTINE Care 08/19/17 11:19 Active EKG Documentation Completion [RC] STAT Care 08/19/17 09:55 Active Notify Provider Consults [RC] ASDIRECTED Care 08/19/17 11:20 Active Oxygen Therapy [RC] PRN Care 08/19/17 11:11 Active Up With Assistance [RC] ASDIRECTED Care 08/19/17 11:11 Active VTE/DVT Education [RC] PER UNIT ROUTINE Care 08/19/17 11:11 Active Vital Signs [RC] Q4H Care 08/19/17 11:11 Active Consult to Physician [CONS] Routine Cons 08/19/17 11:11 Active OT Evaluation and Treatment [CONS] Routine Cons 08/19/17 11:11 Active PT Evaluation and Treatment [CONS] Routine Cons 08/19/17 11:11 Active Nothing per Oral Now Diet [DIET] Diet 08/19/17 Dinner Active CV Carotid Duplex Ltd [US] Routine Exams 08/19/17 11:11 Ordered Echo Comp wo Cont [US] Routine Exams 08/19/17 11:11 Ordered BASIC METABOLIC PANEL,BMP [CHEM] AM Lab 08/20/17 05:11 Ordered BASIC METABOLIC PANEL,BMP [CHEM] AM Lab 08/21/17 05:11 Ordered BASIC METABOLIC PANEL,BMP [CHEM] AM Lab 08/22/17 05:11 Ordered CBC WITH AUTO DIFF [HEME] AM Lab 08/20/17 05:11 Ordered CBC WITH AUTO DIFF [HEME] AM Lab 08/21/17 05:11 Ordered CBC WITH AUTO DIFF [HEME] AM Lab 08/22/17 05:11 Ordered LIPID PANEL [CHEM] Routine Lab 08/19/17 11:11 Ordered UA W/MICROSCOPIC [URIN] Stat Lab 08/19/17 09:54 Uncollected Acetaminophen [Tylenol] Med 08/19/17 11:11 Active 650 mg PO Q4H PRN Sodium Chloride 0.9% [Normal Saline] 1,000 ml Med 08/19/17 11:00 Active IV STAT Sequential Compression Device [OM.PC] Per Unit Routine Oth 08/19/17 11:17 Ordered Resuscitation Status Routine Resus Stat 08/19/17 11:11 Ordered Medication Orders Acetaminophen (Tylenol) 650 mg PO Q4H PRN PRN Reason: Pain (Mild 1-3)/fever Sodium Chloride (Normal Saline) 1,000 mls @ 125 mls/hr IV STAT CONSUELO Last Admin: 08/19/17 11:01 Dose: 125 mls/hr Assessment/Plan Comment:: Assessment: 86 [facility] admitted for LUE weakness secondary to CVA. CT Head reveals acute to subacute small cortical infarct. In ED she was given ASA 325 mg single dose and started on IV NS. Code status is DNR /DNI CVA: Telemetry. Troponin [id number] x3. Lipid Panel. Hold anti-hypertensive medications. ASA 325 mg Daily. Atorvastatin 80 mg PO QD. Carotid Duplex Us. Echocardiogram. Neuro Consult. PT/OT Consult. Speech Consult. <Braulio Mckee - Last Filed: 08/19/17 21:36> Exam - Vital Signs Vital Signs: Last Vital Signs Temp 36.9 C 08/19/17 20:00 Pulse 73 08/19/17 20:00 Resp 19 08/19/17 20:00 BP 125/60 08/19/17 20:00 Pulse Ox 93 L 08/19/17 20:00 - Patient Data Lab Results Last 24 hrs: Laboratory Results - last 24 hr 08/19/17 08/19/17 Range/Units 13:22 16:05 Troponin I < 0.10 (0.0-0.29) NG/ML Urine Color YELLOW Urine Appearance CLEAR Urine pH 6.0 (5.0-8.0) Ur Specific [place] 1.010 (1.001-1.035) Urine Protein NEGATIVE (NEGATIVE) mg/dL Urine Glucose (UA) NEGATIVE (NEGATIVE) mg/dL Urine Ketones NEGATIVE (NEGATIVE) mg/dL Urine Occult Blood NEGATIVE (NEGATIVE) Urine Nitrite NEGATIVE (NEGATIVE) Urine Bilirubin NEGATIVE (NEGATIVE) Urine Urobilinogen 0.2 (<2.0) EU/dL Ur Leukocyte Esterase NEGATIVE (NEGATIVE) Urine RBC 0-1 (0-2/HPF) Urine WBC 0-2 (0-5/HPF) Ur Epithelial Cells FEW (NONE-FEW) Urine Bacteria RARE (NEGATIVE) Urine Mucus LIGHT (NONE-MOD) Result Diagrams: 08/19/17 10:18 08/19/17 10:18 *Q Meaningful Use (ADM) - VTE *Q VTE Criteria *Q: - Stroke *Q Stroke Criteria *Q: - AMI *Q AMI Criteria *Q: Orders Last 24hrs: Active Orders 24 hr Category Date Time Status Insert Vázquez Catheter [Insert Urinary Catheter] [OM.PC] Care 08/19/17 11:30 Ordered Q24H Telemetry Monitoring [Cardiac Monitoring] [RC] . Care 08/19/17 13:37 Active DIRECTED Urinary Catheter Assessment [RC] ASDIRECTED Care 08/19/17 11:30 Active Consult to Speech Language Pathology [SCORER HELPER Evaluation Cons 08/19/17 20:48 Active and Treatment] [CONS] Routine TROPONIN I [CHEM] Routine Lab 08/19/17 22:00 Ordered Dextrose 5%-0.45% NaCl [Dextrose 5%-1/2 NS] 1,000 ml Med 08/19/17 20:49 Active IV ASDIRECTED atorvaSTATin [Lipitor] Med 08/19/17 12:00 Active 80 mg PO BEDTIME Medication Orders Acetaminophen (Tylenol) 650 mg PO Q4H PRN PRN Reason: Pain (Mild 1-3)/fever Atorvastatin Calcium (Lipitor) 80 mg PO BEDTIME CONSUELO Last Admin: 08/19/17 13:04 Dose: Dextrose/Sodium Chloride (Dextrose 5%-1/2 Ns) 1,000 mls @ 50 mls/hr IV ASDIRECTED CONSUELO - Free Text/Narrative Note: Dr. Mckee writes: I have examined this patient and evaluated her laboratory studies. I concur with her history and physical on assessment and plan.
[2017-08-19] MEDS: atorvaSTATin 40 MG Tab PO SCH ×2 (13:04→22:20)
--- NOTE | 2017-08-19 16:52 | PCM.CONS ---
H&P History of Present Illness - General Admit Problem/Dx: Admission Diagnosis/Problem Admission Diagnosis/Problem CVA, Cerebrovascular accident - History of Present Illness Initial Comments - Free Text/Narative: 86 year old woman with dementia, HTN, hyperlipidemia admitted with left upper limb weakness. She lives at [facility]. She was noted today to have left sided weakness by staff. Last normal time unknown. She is poor historian. She notes no pain. She agree that left arm is weak when this is pointed out to her. CT showed loss of silverio-white matter differentiation and hypodense area in posterior right frontal lobe consistent with acute/subacute stroke. Subcortical white matter hypodensities consistent with small vessel disease also noted. Back Pain Score (Numeric/FACES): 6 - Related Data Allergies/Adverse Reactions: Allergies Allergy/AdvReac Type Severity Reaction Status Date / Time No Known Allergies Allergy Verified 08/17/17 07:17 Home Medications: Home Meds Betaxolol HCl [Betaxolol] 10 mg PO DAILY 06/25/17 [History] Multivits,Ca,Minerals/Iron/FA [One-A-Day Women's] 1 tab PO DAILY 06/25/17 [ History] Triamterene/Hydrochlorothiazid [Triamterene-HCTZ 75-50 MG] 1 tab PO DAILY [History] Dextran 70/Hypromellose/PF [Artificial Tears Drops] 1 drop EYEBOTH BID 08/17/17 [History] Magnesium Hydroxide [Milk of Magnesia] 30 ml PO DAILY PRN 08/17/17 [History] Acetaminophen [Tylenol] 650 mg PO Q6H PRN 08/19/17 [History] Ferrous Sulfate 325 mg PO WITHBREAKFAST 08/19/17 [History] traMADol HCl [Ultram] 50 mg PO Q12H PRN 08/19/17 [History] Past Medical History HEENT History: Reports: Impaired Vision, Macular Degeneration Cardiovascular History: Reports: High Cholesterol, Hypertension Respiratory History: Reports: None Other Respiratory History: solitary pulmonary nodule Gastrointestinal History: Reports: None Genitourinary History: Reports: None Musculoskeletal History: Reports: None Neurological History: Reports: None, Other (See Below) Other Neuro History: disorientation;dementia Psychiatric History: Reports: None Endocrine/Metabolic History: Reports: Other (See Below) Other Endocrine/Metabolic History: thyroid problem? Hematologic History: Reports: None Immunologic History: Reports: None Oncologic (Cancer) History: Reports: None Dermatologic History: Reports: None - Infectious Disease History Infectious Disease History: Reports: None - Past Surgical History Head Surgeries/Procedures: Reports: None GI Surgical History: Reports: None Female Surgical History: Reports: None Musculoskeletal Surgical History: Reports: None Oncologic Surgical History: Reports: None Dermatological Surgical History: Reports: None Social & Family History - Family History Family Medical History: Unobtainable - Tobacco Use Smoking Status *Q: Former Smoker Used Tobacco, but Quit: Yes Month Tobacco Last Used: 2012 Second Hand Smoke Exposure: No - Caffeine Use Caffeine Use: Reports: Coffee Caffeine Use Comment: 2 cups daily - Recreational Drug Use Recreational Drug Use: No H&P Review of Systems - Review of Systems: Review Of Systems: ROS reveals no pertinent complaints other than HPI. Exam - Exam Exam: See Below - Vital Signs Vital Signs: Last Vital Signs Temp 36.3 C 08/19/17 12:25 Pulse 69 08/19/17 12:25 Resp 20 08/19/17 12:25 BP 151/66 H 08/19/17 12:25 Pulse Ox 95 08/19/17 12:27 Weight: 45.9 kg - Exam Physical Exam Comments:: Constitutional: No acute distress Psychiatric: Mood/Affect: normal/appropriate Neurological: Mental Status: General: Normal activity, good hygiene, appropriate appearance. Level of consciousness: Awake, alert. Orientation: Oriented to person only Comprehension/Praxis: Able to perform single step command. 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 Language: Fluent, naming intact, repetition impaired Insight/Judgement: Impaired. When asked about family, she stated that her parents live in the area. Cranial Nerves: Pupils sluggishly reactive to light. Visual craft unreliable. Impaired upgaze Mild left facial droop. Palate elevates symmetrically. Normal shrug on the right. Tongue protrudes midline Motor: Normal tone in all groups. No drift. Power 5/5 in right upper limb. 1- 2 in left upper limb. Hip flexion 2/5 bilaterally, limited by cooperation. Knee extension antigravity bilaterally, limited cooperation ( I need my glasses (she was wearing her classes)). . Ankle dorsiflexors > 4 / 5 bilaterally. Sensation: Sensation unreliable. Deep tendon reflexes: 1+ throughout. Plantar responses are flexor bilaterally. Coordination: Finger to nose intact with right upper limb HEENT: Eyes: non icteric, Mouth: moist mucus membranes Cardiovascular: RRR Respiratory: clear lungs GI: non tender Musculoskeletal: non tender Skin: no visible rash - Patient Data Lab Results Last 24 hrs: Laboratory Results - last 24 hr 08/19/17 08/19/17 Range/Units 13:22 16:05 Troponin I < 0.10 (0.0-0.29) NG/ML Urine Color YELLOW Urine Appearance CLEAR Urine pH 6.0 (5.0-8.0) Ur Specific [place] 1.010 (1.001-1.035) Urine Protein NEGATIVE (NEGATIVE) mg/dL Urine Glucose (UA) NEGATIVE (NEGATIVE) mg/dL Urine Ketones NEGATIVE (NEGATIVE) mg/dL Urine Occult Blood NEGATIVE (NEGATIVE) Urine Nitrite NEGATIVE (NEGATIVE) Urine Bilirubin NEGATIVE (NEGATIVE) Urine Urobilinogen 0.2 (<2.0) EU/dL Ur Leukocyte Esterase NEGATIVE (NEGATIVE) Urine RBC 0-1 (0-2/HPF) Urine WBC 0-2 (0-5/HPF) Ur Epithelial Cells FEW (NONE-FEW) Urine Bacteria RARE (NEGATIVE) Urine Mucus LIGHT (NONE-MOD) Result Diagrams: 08/19/17 10:18 08/19/17 10:18 Consult PN Assessment/Plan Procedures: Procedures ASSAY OF FERRITIN (06/25/17) ASSAY OF FOLIC ACID SERUM (06/25/17) ASSAY OF MAGNESIUM (06/25/17) ASSAY OF TROPONIN QUANT (06/25/17) ASSAY THYROID STIM HORMONE (06/25/17) AUTOMATED RETICULOCYTE COUNT (06/25/17) BLOOD TRANSFUSION SERVICE (06/25/17) BLOOD TYPING SEROLOGIC ABO (06/25/17) BLOOD TYPING SEROLOGIC RH(D) (06/25/17) CHEST X-RAY 1 VIEW FRONTAL (06/25/17) COMP SCREEN MAMMOGRAM ADD-ON (08/18/14) COMPATIBILITY TEST ANTIGLOB (06/25/17) COMPATIBILITY TEST INCUBATE (06/25/17) COMPATIBILITY TEST SPIN (06/25/17) COMPLETE CBC AUTOMATED (08/18/14) COMPLETE CBC W/AUTO DIFF WBC (06/25/17) COMPREHEN METABOLIC PANEL (06/25/17) CT HEAD/BRAIN W/O DYE (06/25/17) ELECTROCARDIOGRAM TRACING (06/25/17) EMERGENCY DEPT VISIT (06/25/17) GLUCOSE BLOOD TEST (06/25/17) HYDRATE IV INFUSION ADD-ON (06/25/17) IRON BINDING TEST (06/25/17) LIPID PANEL (06/07/16) METABOLIC PANEL TOTAL CA (06/25/17) OFFICE/OUTPATIENT VISIT EST (08/18/14) PT EVAL LOW COMPLEX 20 MIN (06/25/17) RBC ANTIBODY SCREEN (06/25/17) REMOVE IMPACTED EAR WAX UNI (08/18/14) ROUTINE VENIPUNCTURE (06/25/17) THER/PROPH/DIAG IV INF ADDON (06/25/17) THER/PROPH/DIAG IV INF INIT (06/25/17) URINALYSIS AUTO W/SCOPE (06/25/17) URINE CULTURE/COLONY COUNT (06/25/17) VITAMIN B-12 (06/25/17) (1) Stroke SNOMED Code(s): 779823616 Code(s): I63.9 - CEREBRAL INFARCTION, UNSPECIFIED Current Visit: Yes Assessment:: 86 year old woman with advanced dementia now with left arm>face weakness. CT scan showed subacute stroke. Recommendations -carotid US pending -TTE pending -speech/PT/OT consults -telemetry -permissive HTN -swallow eval -agree with atorvastatin 80 mg -ASA 325 mg is reasonable Problem List Initiated/Reviewed/Updated: Yes
[2017-08-19] MEDS: Dextrose 5%-0.45% NaCl 1,000 ML IV SCH (22:27)
--- NOTE | 2017-08-20 10:57 | PCM.PN ---
<Baluch,Kwame - Last Filed: 08/20/17 13:54> - General Info Date of Service: 08/20/17 Admission Dx/Problem (Free Text): Admission Diagnosis/Problem Admission Diagnosis/Problem CVA, Cerebrovascular accident Subjective Update: Patient with advanced dementia. Neuro status is unchanged from yesterday. She still does not realize the she is unable to move her left arm. She is comfortable unless she is moved. Moving her causes her pain all over. She can comprehend enough to ask for pain medication before being moved. - Review of Systems Systems Review Comment:: unable to obtain due to dementia. Her only complaint is generalized pain all over when she is moved - Patient Data Vitals - Most Recent: Last Vital Signs Temp 36.8 C 08/20/17 04:00 Pulse 74 08/20/17 04:00 Resp 16 08/20/17 04:00 BP 135/57 L 08/20/17 04:00 Pulse Ox 93 L 08/20/17 04:00 Weight - Most Recent: 46 kg I&O - Last 24 Hours: Intake & Output 08/19/17 08/20/17 08/20/17 22:59 06:59 14:59 Intake Total 704 678 Output Total 650 650 Balance 54 28 Lab Results Last 24 Hours: Laboratory Results - last 24 hr 08/19/17 08/19/17 08/19/17 Range/Units 13:22 16:05 21:59 WBC (4.0-11.0) K/uL RBC (4.30-5.90) M/uL Hgb (12.0-16.0) g/dL Hct (36.0-46.0) % MCV (80.0-98.0) fL MCH (27.0-32.0) pg MCHC (31.0-37.0) g/dL RDW Std Deviation (28.0-62.0) fl RDW Coeff of Sera (11.0-15.0) % Plt Count (150-400) K/uL MPV (7.40-12.00) fL Neut % (Auto) (48.0-80.0) % Lymph % (Auto) (16.0-40.0) % [place] % (Auto) (0.0-15.0) % Eos % (Auto) (0.0-7.0) % Baso % (Auto) (0.0-1.5) % Neut # (Auto) (1.4-5.7) K/uL Lymph # (Auto) (0.6-2.4) K/uL [place] # (Auto) (0.0-0.8) K/uL Eos # (Auto) (0.0-0.7) K/uL Baso # (Auto) (0.0-0.1) K/uL Nucleated RBC % /100WBC Nucleated RBCs # K/uL Sodium (136-146) mmol/L Potassium (3.5-5.1) mmol/L Chloride (98-110) mmol/L Carbon Dioxide (21-31) mmol/L BUN (6.0-23.0) mg/dL Creatinine (0.6-1.5) mg/dL Est Cr Clr Drug Dosing mL/min Estimated GFR (MDRD) ml/min Glucose (60-110) mg/dL Calcium (8.8-10.8) mg/dL Troponin I < 0.10 < 0.10 (0.0-0.29) NG/ML Urine Color YELLOW Urine Appearance CLEAR Urine pH 6.0 (5.0-8.0) Ur Specific [place] 1.010 (1.001-1.035) Urine Protein NEGATIVE (NEGATIVE) mg/dL Urine Glucose (UA) NEGATIVE (NEGATIVE) mg/dL Urine Ketones NEGATIVE (NEGATIVE) mg/dL Urine Occult Blood NEGATIVE (NEGATIVE) Urine Nitrite NEGATIVE (NEGATIVE) Urine Bilirubin NEGATIVE (NEGATIVE) Urine Urobilinogen 0.2 (<2.0) EU/dL Ur Leukocyte Esterase NEGATIVE (NEGATIVE) Urine RBC 0-1 (0-2/HPF) Urine WBC 0-2 (0-5/HPF) Ur Epithelial Cells FEW (NONE-FEW) Urine Bacteria RARE (NEGATIVE) Urine Mucus LIGHT (NONE-MOD) 08/20/17 08/20/17 Range/Units 05:24 05:24 WBC 4.36 (4.0-11.0) K/uL RBC 3.33 L (4.30-5.90) M/uL Hgb 8.0 L (12.0-16.0) g/dL Hct 25.9 L (36.0-46.0) % MCV 77.8 L (80.0-98.0) fL MCH 24.0 L (27.0-32.0) pg MCHC 30.9 L (31.0-37.0) g/dL RDW Std Deviation 54.9 (28.0-62.0) fl RDW Coeff of Sera 19 H (11.0-15.0) % Plt Count 197 (150-400) K/uL MPV 8.90 (7.40-12.00) fL Neut % (Auto) 76.9 (48.0-80.0) % Lymph % (Auto) 11.0 L (16.0-40.0) % [place] % (Auto) 11.7 (0.0-15.0) % Eos % (Auto) 0.2 (0.0-7.0) % Baso % (Auto) 0.2 (0.0-1.5) % Neut # (Auto) 3.4 (1.4-5.7) K/uL Lymph # (Auto) 0.5 L (0.6-2.4) K/uL [place] # (Auto) 0.5 (0.0-0.8) K/uL Eos # (Auto) 0.0 (0.0-0.7) K/uL Baso # (Auto) 0.0 (0.0-0.1) K/uL Nucleated RBC % 0.0 /100WBC Nucleated RBCs # 0 K/uL Sodium 138 (136-146) mmol/L Potassium 3.6 (3.5-5.1) mmol/L Chloride 107 (98-110) mmol/L Carbon Dioxide 22 (21-31) mmol/L BUN 31 H (6.0-23.0) mg/dL Creatinine 0.9 (0.6-1.5) mg/dL Est Cr Clr Drug Dosing 32.58 mL/min Estimated GFR (MDRD) 59.4 ml/min Glucose 111 H (60-110) mg/dL Calcium 8.4 L (8.8-10.8) mg/dL Troponin I (0.0-0.29) NG/ML Urine Color Urine Appearance Urine pH (5.0-8.0) Ur Specific [place] (1.001-1.035) Urine Protein (NEGATIVE) mg/dL Urine Glucose (UA) (NEGATIVE) mg/dL Urine Ketones (NEGATIVE) mg/dL Urine Occult Blood (NEGATIVE) Urine Nitrite (NEGATIVE) Urine Bilirubin (NEGATIVE) Urine Urobilinogen (<2.0) EU/dL Ur Leukocyte Esterase (NEGATIVE) Urine RBC (0-2/HPF) Urine WBC (0-5/HPF) Ur Epithelial Cells (NONE-FEW) Urine Bacteria (NEGATIVE) Urine Mucus (NONE-MOD) Med Orders - Current: Current Medications Acetaminophen (Tylenol) 650 mg PO Q4H PRN PRN Reason: Pain (Mild 1-3)/fever Last Admin: 08/20/17 10:38 Dose: 650 mg Atorvastatin Calcium (Lipitor) 80 mg PO BEDTIME [facility] Last Admin: 08/19/17 22:20 Dose: 80 mg Dextrose/Sodium Chloride (Dextrose 5%-1/2 Ns) 1,000 mls @ 50 mls/hr IV ASDIRECTED [facility] Last Admin: 08/19/17 22:27 Dose: 50 mls/hr Discontinued Medications Aspirin (Aspirin) 324 mg PO ONETIME ONE Stop: 08/19/17 10:47 Last Admin: 08/19/17 11:01 Dose: 324 mg Sodium Chloride (Normal Saline) 1,000 mls @ 125 mls/hr IV STAT [facility] Last Admin: 08/19/17 19:22 Dose: 125 mls/hr - Exam General: Cooperative, No Acute Distress HEENT: Pupils Equal, Pupils Reactive, Other (baseline vision impairment) Neck: No JVD Lungs: Clear to Auscultation, Normal Respiratory Effort Cardiovascular: Regular Rate, Regular Rhythm GI/Abdominal Exam: Soft, Non-Tender Back Exam: Decreased Range of Motion, Paraspinal Tenderness, Vertebral Tenderness Extremities: No Pedal Edema Skin: Warm, Dry, Intact Neurological: No New Focal Deficit, Other (Other (Patient is alert to person and place. Baseline vision impairment. Sensation to light touch, vibration and temperature is intact throughout. Right sided facial drooping. Motor strength 2/ 5 at RUE, 1/5 at RLE, 0/5 at LUE/Left upper leg/left lower leg, 1/5 at left digits. right babinski negative. left babinski positive. All reflexes diminished throughout. ) - Problem List Review Problem List Initiated/Reviewed/Updated: Yes - My Orders Last 24 Hours: My Active Orders 08/19/17 12:00 atorvaSTATin [Lipitor] 80 mg PO BEDTIME 08/19/17 13:37 Telemetry Monitoring [Cardiac Monitoring] [RC] Q8H 08/19/17 20:48 Consult to Speech Language Pathology [TENNIS DIRECTOR Evaluation and Treatment] [CONS] Routine 08/19/17 20:49 Dextrose 5%-0.45% NaCl [Dextrose 5%-1/2 NS] 1,000 ml IV ASDIRECTED - Plan Plan:: Assessment: 86 [facility] admitted for Left sided weakness secondary to CVA. CT Head reveals acute to subacute small cortical infarct. Code status is DNR/DNI. Neuro exam is unchanged today. CVA: Telemetry. Troponin [id number] x3 negative. Lipid Panel obtained. Holding anti -hypertensive medications. ASA 325 mg Daily. Atorvastatin 80 mg PO QD. Carotid Duplex Us & Echocardiogram complete, waiting to be read. Dr. Shafer, neurology was consulted and agrees with plan, appreciate the rec's. Speech consult complete and patient is cleared to resume regular diet and pills with apple sauce. PT/OT have also been consulted. Start Tramadol 50 mg PO before PT & before moving patient. Disposition: possibly back to [facility] tomorrow where PT/OT will be resumed. Will discharge with order for Tramadol PRN 1 hour prior to PT. <Braulio Mckee - Last Filed: 08/20/17 19:37> - Patient Data Vitals - Most Recent: Last Vital Signs Temp 36.2 C 08/20/17 16:00 Pulse 84 08/20/17 16:00 Resp 16 08/20/17 16:00 BP 132/90 08/20/17 16:00 Pulse Ox 93 L 08/20/17 16:00 I&O - Last 24 Hours: Intake & Output 08/20/17 08/20/17 08/20/17 06:59 14:59 22:59 Intake Total 678 1280 Output Total 650 550 Balance 28 730 Lab Results Last 24 Hours: Laboratory Results - last 24 hr 08/19/17 08/20/17 08/20/17 Range/Units 21:59 05:24 05:24 WBC 4.36 (4.0-11.0) K/uL RBC 3.33 L (4.30-5.90) M/uL Hgb 8.0 L (12.0-16.0) g/dL Hct 25.9 L (36.0-46.0) % MCV 77.8 L (80.0-98.0) fL MCH 24.0 L (27.0-32.0) pg MCHC 30.9 L (31.0-37.0) g/dL RDW Std Deviation 54.9 (28.0-62.0) fl RDW Coeff of Sera 19 H (11.0-15.0) % Plt Count 197 (150-400) K/uL MPV 8.90 (7.40-12.00) fL Neut % (Auto) 76.9 (48.0-80.0) % Lymph % (Auto) 11.0 L (16.0-40.0) % [place] % (Auto) 11.7 (0.0-15.0) % Eos % (Auto) 0.2 (0.0-7.0) % Baso % (Auto) 0.2 (0.0-1.5) % Neut # (Auto) 3.4 (1.4-5.7) K/uL Lymph # (Auto) 0.5 L (0.6-2.4) K/uL [place] # (Auto) 0.5 (0.0-0.8) K/uL Eos # (Auto) 0.0 (0.0-0.7) K/uL Baso # (Auto) 0.0 (0.0-0.1) K/uL Nucleated RBC % 0.0 /100WBC Nucleated RBCs # 0 K/uL Sodium 138 (136-146) mmol/L Potassium 3.6 (3.5-5.1) mmol/L Chloride 107 (98-110) mmol/L Carbon Dioxide 22 (21-31) mmol/L BUN 31 H (6.0-23.0) mg/dL Creatinine 0.9 (0.6-1.5) mg/dL Est Cr Clr Drug Dosing 32.58 mL/min Estimated GFR (MDRD) 59.4 ml/min Glucose 111 H (60-110) mg/dL Calcium 8.4 L (8.8-10.8) mg/dL Troponin I < 0.10 (0.0-0.29) NG/ML Med Orders - Current: Current Medications Acetaminophen (Tylenol) 650 mg PO Q4H PRN PRN Reason: Pain (Mild 1-3)/fever Last Admin: 08/20/17 10:38 Dose: 650 mg Aspirin (Ecotrin) 325 mg PO DAILY [facility] Last Admin: 08/20/17 14:02 Dose: 325 mg Atorvastatin Calcium (Lipitor) 80 mg PO BEDTIME [facility] Last Admin: 08/19/17 22:20 Dose: 80 mg Dextrose/Sodium Chloride (Dextrose 5%-1/2 Ns) 1,000 mls @ 50 mls/hr IV ASDIRECTED [facility] Last Admin: 08/20/17 16:21 Dose: 50 mls/hr Tramadol HCl (Ultram) 50 mg PO Q12H PRN PRN Reason: Pain Discontinued Medications Aspirin (Aspirin) 324 mg PO ONETIME ONE Stop: 08/19/17 10:47 Last Admin: 08/19/17 11:01 Dose: 324 mg Sodium Chloride (Normal Saline) 1,000 mls @ 125 mls/hr IV STAT [facility] Last Admin: 08/19/17 19:22 Dose: 125 mls/hr Tramadol HCl (Ultram) 50 mg PO Q4H PRN PRN Reason: Pain - My Orders Last 24 Hours: My Active Orders 08/20/17 14:00 Aspirin [Ecotrin] 325 mg PO DAILY - Free Text/Narrative Note: Dr. Mckee writes: I have seen this patient today, I have reviewed her data and current care with Dr. Thompson. I agree with Dr. Thompson's note and plan.
--- NOTE | 2017-08-20 11:13 | US ---
EXAMINATION: Carotid US with hart scale and duplex imaging. HISTORY: Stroke FINDINGS: Ultrasound examination of bilateral cervical carotid arteries was performed using hart scale and dupl ex imaging. There are scattered atheromatous plaque within the carotid arteries bilaterally.. Anteg rade flow is noted within the vertebrals. These are the peak velocities in cm per second (systole), right and left respectively, by a comma: CCA (common carotid artery) - 70, 70 ICA (internal carotid artery) - 97, 142 ECA (External carotid artery) - 89, 61 ICA/CCA systolic ratio Right - 1.2 Left - 1.8 IMPRESSION: 1. Scattered atheromatous plaque within the carotid arteries bilaterally most prominent within the m id to distal left ICA with 50-69% stenosis. 2. There is less than 50% stenosis noted within the right ICA.
[2017-08-20] MEDS ORDERED: traMADol 50 MG Tab PO PRN ×2 (12:09→13:00)
[2017-08-20] MEDS: Aspirin 325 MG Tab.EC PO SCH (14:02)
--- NOTE | 2017-08-20 16:15 | PCM.CONSN ---
- General Info Date of Service: 08/20/17 Admission Dx/Problem (Free Text): Admission Diagnosis/Problem Admission Diagnosis/Problem CVA, Cerebrovascular accident Subjective Update: No events over night. She is not aware of weakness. She confabulates. She notes pain if somebody moves her arms and legs. - Patient Data Vitals - Most Recent: Last Vital Signs Temp 36.6 C 08/20/17 12:12 Pulse 80 08/20/17 12:12 Resp 16 08/20/17 12:12 BP 121/65 08/20/17 12:12 Pulse Ox 93 L 08/20/17 04:00 Weight - Most Recent: 46 kg I&O - Last 24 Hours: Intake & Output 08/20/17 08/20/17 08/20/17 06:59 14:59 22:59 Intake Total 678 Output Total 650 Balance 28 Lab Results Last 24 Hours: Laboratory Results - last 24 hr 08/19/17 08/19/17 08/20/17 Range/Units 16:05 21:59 05:24 WBC 4.36 (4.0-11.0) K/uL RBC 3.33 L (4.30-5.90) M/uL Hgb 8.0 L (12.0-16.0) g/dL Hct 25.9 L (36.0-46.0) % MCV 77.8 L (80.0-98.0) fL MCH 24.0 L (27.0-32.0) pg MCHC 30.9 L (31.0-37.0) g/dL RDW Std Deviation 54.9 (28.0-62.0) fl RDW Coeff of Sera 19 H (11.0-15.0) % Plt Count 197 (150-400) K/uL MPV 8.90 (7.40-12.00) fL Neut % (Auto) 76.9 (48.0-80.0) % Lymph % (Auto) 11.0 L (16.0-40.0) % [place] % (Auto) 11.7 (0.0-15.0) % Eos % (Auto) 0.2 (0.0-7.0) % Baso % (Auto) 0.2 (0.0-1.5) % Neut # (Auto) 3.4 (1.4-5.7) K/uL Lymph # (Auto) 0.5 L (0.6-2.4) K/uL [place] # (Auto) 0.5 (0.0-0.8) K/uL Eos # (Auto) 0.0 (0.0-0.7) K/uL Baso # (Auto) 0.0 (0.0-0.1) K/uL Nucleated RBC % 0.0 /100WBC Nucleated RBCs # 0 K/uL Sodium (136-146) mmol/L Potassium (3.5-5.1) mmol/L Chloride (98-110) mmol/L Carbon Dioxide (21-31) mmol/L BUN (6.0-23.0) mg/dL Creatinine (0.6-1.5) mg/dL Est Cr Clr Drug Dosing mL/min Estimated GFR (MDRD) ml/min Glucose (60-110) mg/dL Calcium (8.8-10.8) mg/dL Troponin I < 0.10 < 0.10 (0.0-0.29) NG/ML 08/20/17 Range/Units 05:24 WBC (4.0-11.0) K/uL RBC (4.30-5.90) M/uL Hgb (12.0-16.0) g/dL Hct (36.0-46.0) % MCV (80.0-98.0) fL MCH (27.0-32.0) pg MCHC (31.0-37.0) g/dL RDW Std Deviation (28.0-62.0) fl RDW Coeff of Sera (11.0-15.0) % Plt Count (150-400) K/uL MPV (7.40-12.00) fL Neut % (Auto) (48.0-80.0) % Lymph % (Auto) (16.0-40.0) % [place] % (Auto) (0.0-15.0) % Eos % (Auto) (0.0-7.0) % Baso % (Auto) (0.0-1.5) % Neut # (Auto) (1.4-5.7) K/uL Lymph # (Auto) (0.6-2.4) K/uL [place] # (Auto) (0.0-0.8) K/uL Eos # (Auto) (0.0-0.7) K/uL Baso # (Auto) (0.0-0.1) K/uL Nucleated RBC % /100WBC Nucleated RBCs # K/uL Sodium 138 (136-146) mmol/L Potassium 3.6 (3.5-5.1) mmol/L Chloride 107 (98-110) mmol/L Carbon Dioxide 22 (21-31) mmol/L BUN 31 H (6.0-23.0) mg/dL Creatinine 0.9 (0.6-1.5) mg/dL Est Cr Clr Drug Dosing 32.58 mL/min Estimated GFR (MDRD) 59.4 ml/min Glucose 111 H (60-110) mg/dL Calcium 8.4 L (8.8-10.8) mg/dL Troponin I (0.0-0.29) NG/ML Med Orders - Current: Current Medications Acetaminophen (Tylenol) 650 mg PO Q4H PRN PRN Reason: Pain (Mild 1-3)/fever Last Admin: 08/20/17 10:38 Dose: 650 mg Aspirin (Ecotrin) 325 mg PO DAILY [facility] Last Admin: 08/20/17 14:02 Dose: 325 mg Atorvastatin Calcium (Lipitor) 80 mg PO BEDTIME [facility] Last Admin: 08/19/17 22:20 Dose: 80 mg Dextrose/Sodium Chloride (Dextrose 5%-1/2 Ns) 1,000 mls @ 50 mls/hr IV ASDIRECTED [facility] Last Admin: 08/19/17 22:27 Dose: 50 mls/hr Tramadol HCl (Ultram) 50 mg PO Q12H PRN PRN Reason: Pain Discontinued Medications Aspirin (Aspirin) 324 mg PO ONETIME ONE Stop: 08/19/17 10:47 Last Admin: 08/19/17 11:01 Dose: 324 mg Sodium Chloride (Normal Saline) 1,000 mls @ 125 mls/hr IV STAT [facility] Last Admin: 08/19/17 19:22 Dose: 125 mls/hr Tramadol HCl (Ultram) 50 mg PO Q4H PRN PRN Reason: Pain - Exam Physical Findings Comments:: Constitutional: No acute distress Psychiatric: Mood/Affect: normal/appropriate Neurological: Mental Status: General: Normal activity, good hygiene, appropriate appearance. Level of consciousness: Awake, alert. Orientation: Oriented to person only Comprehension/Praxis: Able to perform single step command. Fund of Knowledge/memory: Impaired short term and fci memory. Language: Fluent and articulate without evidence of aphasia Insight/Judgement: Impaired. Cranial Nerves: Pupils sluggishly reactive to light. Visual craft unreliable. Impaired upgaze Mild left facial droop. Palate elevates symmetrically. Normal shrug on the right. Tongue protrudes midline Motor: Normal tone in all groups. No drift. Power 5/5 in right upper limb. 1- 2 in left upper limb. Hip flexion 2/5 bilaterally, limited by cooperation. Knee extension antigravity bilaterally, limited cooperation, Ankle dorsiflexors > 4 / 5 bilaterally. Sensation: Sensation unreliable. Coordination: Finger to nose intact with right upper limb Consult PN Assessment/Plan Procedures: Procedures ASSAY OF FERRITIN (06/25/17) ASSAY OF FOLIC ACID SERUM (06/25/17) ASSAY OF MAGNESIUM (06/25/17) ASSAY OF TROPONIN QUANT (08/17/17) ASSAY THYROID STIM HORMONE (06/25/17) AUTOMATED RETICULOCYTE COUNT (06/25/17) BLOOD TRANSFUSION SERVICE (06/25/17) BLOOD TYPING SEROLOGIC ABO (06/25/17) BLOOD TYPING SEROLOGIC RH(D) (06/25/17) CHEST X-RAY 1 VIEW FRONTAL (08/17/17) COMP SCREEN MAMMOGRAM ADD-ON (08/18/14) COMPATIBILITY TEST ANTIGLOB (06/25/17) COMPATIBILITY TEST INCUBATE (06/25/17) COMPATIBILITY TEST SPIN (06/25/17) COMPLETE CBC AUTOMATED (08/18/14) COMPLETE CBC W/AUTO DIFF WBC (08/17/17) COMPREHEN METABOLIC PANEL (08/17/17) CT HEAD/BRAIN W/O DYE (08/17/17) CT NECK SPINE W/O DYE (08/17/17) ELECTROCARDIOGRAM TRACING (08/17/17) EMERGENCY DEPT VISIT (08/17/17) EMERGENCY DEPT VISIT (06/25/17) GLUCOSE BLOOD TEST (06/25/17) HYDRATE IV INFUSION ADD-ON (06/25/17) IRON BINDING TEST (06/25/17) LIPID PANEL (06/07/16) METABOLIC PANEL TOTAL CA (06/25/17) OFFICE/OUTPATIENT VISIT EST (08/18/14) PT EVAL LOW COMPLEX 20 MIN (06/25/17) RBC ANTIBODY SCREEN (06/25/17) REMOVE IMPACTED EAR WAX UNI (08/18/14) ROUTINE VENIPUNCTURE (08/17/17) THER/PROPH/DIAG IV INF ADDON (06/25/17) THER/PROPH/DIAG IV INF INIT (06/25/17) URINALYSIS AUTO W/SCOPE (06/25/17) URINE CULTURE/COLONY COUNT (06/25/17) VITAMIN B-12 (06/25/17) X-RAY EXAM L-S SPINE 2/3 VWS (08/17/17) X-RAY EXAM OF PELVIS (08/17/17) (1) Stroke SNOMED Code(s): 693201785 Code(s): I63.9 - CEREBRAL INFARCTION, UNSPECIFIED Current Visit: Yes Qualifiers: Laterality of affected vessel: right Assessment:: 86 year old woman with advanced dementia admitted with likely acute/subacute stroke in right MCA territory. -carotid US - moderate left ICA stenosis, less than 50% stenosis right ICA stenosis. -TTE pending -telemetry no reported afib -LDL 101 -on ASA and Lipitor 80 mg Recs: -PT/OT consults -telemetry until discharge Problem List Initiated/Reviewed/Updated: Yes
[2017-08-20] MEDS: Dextrose 5%-0.45% NaCl 1,000 ML IV SCH (16:21)
[2017-08-20] MEDS: atorvaSTATin 40 MG Tab PO SCH (20:01)
[2017-08-21 05:46] LABS: CHLORIDE,CL 105 mmol/L (98-110); SODIUM,NA 137 mmol/L (136-146)
[2017-08-21] MEDS: Aspirin 325 MG Tab.EC PO SCH (08:20)
--- NOTE | 2017-08-21 08:24 | PCM.DCSUM1 ---
<Jay,Kwame - Last Filed: 08/21/17 08:19> Discharge Summary - Hospital Course Free Text/Narrative:: 86 yo fm resident of [facility] was admitted 08/18/17 for left sided weakness. She had pmh of advanced dementia and vision impairment. CT confirmed subacute stroke. She has lost all motor strength of her left upper extremity completely. She has lost all motor strength of of her left lower extremity for trace movement of her toes. Consults were placed to Neurology, Speech Therapy and PT/ OT. She passed her swallow evaluation, but it was recommended to give pills in apple sauce. Carotid US was done which showed Left ICA stenosis 50-69% and Right ICA less than 50% stenosis. Echo was done but has not been read yet. She was discharged back to [facility]. She is to receive PT/OT/Speech therapy at [facility]. - Discharge Data Discharge Date: 08/21/17 Discharge Disposition: DC/Tfer to 03 Condition: Fair - Patient Summary/Data Consults: Consultations 08/19/17 20:48 Consult to Speech Language Pathology [PULP ROLLER Evaluation and Treatment] [CONS] Routine - Patient Instructions Diet: Regular Diet as Tolerated Activity: As Tolerated Showering/Bathing: May Shower Other/Special Instructions: 1. consult to PT/OT/Speech. 2. give pills in apple sauce. 3. please give patient Tramadol 50 mg tablet at least 30-60 minutes before PT, before baths and before moving patient, she complains of pain only when being moved - Discharge Plan Prescriptions/Med Rec: atorvaSTATin [Lipitor] 80 mg PO BEDTIME 7 Days #7 tablet traMADol HCl [Ultram] 50 mg PO Q8H PRN #30 tablet PRN Reason: Pain/PT/Movement Home Medications: Home Meds Betaxolol HCl [Betaxolol] 10 mg PO DAILY 06/25/17 [History] Multivits,Ca,Minerals/Iron/FA [One-A-Day Women's] 1 tab PO DAILY 06/25/17 [ History] Triamterene/Hydrochlorothiazid [Triamterene-HCTZ 75-50 MG] 1 tab PO DAILY [History] Dextran 70/Hypromellose/PF [Artificial Tears Drops] 1 drop EYEBOTH BID 08/17/17 [History] Magnesium Hydroxide [Milk of Magnesia] 30 ml PO DAILY PRN 08/17/17 [History] Acetaminophen [Tylenol] 650 mg PO Q6H PRN 08/19/17 [History] Ferrous Sulfate 325 mg PO WITHBREAKFAST 08/19/17 [History] atorvaSTATin [Lipitor] 80 mg PO BEDTIME 7 Days #7 tablet 08/21/17 [Rx] traMADol HCl [Ultram] 50 mg PO Q8H PRN #30 tablet 08/21/17 [Rx] Patient Handouts: Tramadol tablets, Ischemic Stroke Treated Without Warfarin, [id number], Atorvastatin tablets Referrals: [facility] [Outside] Jean Ortiz MD [Physician] - - Discharge Summary/Plan Comment DC Time >30 min.: No - Patient Data Vitals - Most Recent: Last Vital Signs Temp 36.9 C 08/21/17 04:00 Pulse 93 08/21/17 04:00 Resp 16 08/21/17 04:00 BP 140/70 08/21/17 04:00 Pulse Ox 94 L 08/21/17 04:00 Weight - Most Recent: 46 kg I&O - Last 24 hours: Intake & Output 08/20/17 08/21/17 08/21/17 22:59 06:59 14:59 Intake Total 1280 1050 Output Total 550 450 Balance 730 600 Lab Results - Last 24 hrs: Laboratory Results - last 24 hr 08/21/17 08/21/17 Range/Units 04:57 04:57 WBC 3.82 L (4.0-11.0) K/uL RBC 3.32 L (4.30-5.90) M/uL Hgb 7.9 L (12.0-16.0) g/dL Hct 25.6 L (36.0-46.0) % MCV 77.1 L (80.0-98.0) fL MCH 23.8 L (27.0-32.0) pg MCHC 30.9 L (31.0-37.0) g/dL RDW Std Deviation 53.7 (28.0-62.0) fl RDW Coeff of Sera 19 H (11.0-15.0) % Plt Count 218 (150-400) K/uL MPV 9.00 (7.40-12.00) fL Neut % (Auto) 70.7 (48.0-80.0) % Lymph % (Auto) 17.0 (16.0-40.0) % [place] % (Auto) 12.3 (0.0-15.0) % Eos % (Auto) 0.0 (0.0-7.0) % Baso % (Auto) 0.0 (0.0-1.5) % Neut # (Auto) 2.7 (1.4-5.7) K/uL Lymph # (Auto) 0.7 (0.6-2.4) K/uL [place] # (Auto) 0.5 (0.0-0.8) K/uL Eos # (Auto) 0.0 (0.0-0.7) K/uL Baso # (Auto) 0.0 (0.0-0.1) K/uL Nucleated RBC % 0.0 /100WBC Nucleated RBCs # 0 K/uL Sodium 137 (136-146) mmol/L Potassium 3.3 L (3.5-5.1) mmol/L Chloride 105 (98-110) mmol/L Carbon Dioxide 25 (21-31) mmol/L BUN 23 (6.0-23.0) mg/dL Creatinine 0.8 (0.6-1.5) mg/dL Est Cr Clr Drug Dosing 36.66 mL/min Estimated GFR (MDRD) > 60.0 ml/min Glucose 118 H (60-110) mg/dL Calcium 8.2 L (8.8-10.8) mg/dL Med Orders - Current: Current Medications Acetaminophen (Tylenol) 650 mg PO Q4H PRN PRN Reason: Pain (Mild 1-3)/fever Last Admin: 08/20/17 10:38 Dose: 650 mg Aspirin (Ecotrin) 325 mg PO DAILY [facility] Last Admin: 08/20/17 14:02 Dose: 325 mg Atorvastatin Calcium (Lipitor) 80 mg PO BEDTIME [facility] Last Admin: 08/20/17 20:01 Dose: 80 mg Dextrose/Sodium Chloride (Dextrose 5%-1/2 Ns) 1,000 mls @ 50 mls/hr IV ASDIRECTED [facility] Last Admin: 08/20/17 16:21 Dose: 50 mls/hr Tramadol HCl (Ultram) 50 mg PO Q12H PRN PRN Reason: Pain Discontinued Medications Aspirin (Aspirin) 324 mg PO ONETIME ONE Stop: 08/19/17 10:47 Last Admin: 08/19/17 11:01 Dose: 324 mg Sodium Chloride (Normal Saline) 1,000 mls @ 125 mls/hr IV STAT [facility] Last Admin: 08/19/17 19:22 Dose: 125 mls/hr Tramadol HCl (Ultram) 50 mg PO Q4H PRN PRN Reason: Pain *Q Meaningful Use (DIS) - VTE *Q VTE Criteria *Q: - Stroke *Q Stroke Criteria *Q: - AMI *Q AMI Criteria *Q: <Arturo Hassan - Last Filed: 08/22/17 12:09> Discharge Summary - Hospital Course Free Text/Narrative:: I was present with the resident during history and examination. I discussed the case with the resident and agree with the findings and plan as documented in the residents note. - Patient Summary/Data Consults: Consultations 08/19/17 20:48 Consult to Speech Language Pathology [PULP ROLLER Evaluation and Treatment] [CONS] Routine - Patient Data Vitals - Most Recent: Last Vital Signs Temp 36.1 C 08/21/17 08:00 Pulse 88 08/21/17 08:00 Resp 16 08/21/17 08:00 BP 125/73 08/21/17 08:00 Pulse Ox 96 08/21/17 08:00 Med Orders - Current: Current Medications Discontinued Medications Acetaminophen (Tylenol) 650 mg PO Q4H PRN PRN Reason: Pain (Mild 1-3)/fever Last Admin: 08/20/17 10:38 Dose: 650 mg Aspirin (Aspirin) 324 mg PO ONETIME ONE Stop: 08/19/17 10:47 Last Admin: 08/19/17 11:01 Dose: 324 mg Aspirin (Ecotrin) 325 mg PO DAILY [facility] Last Admin: 08/21/17 08:20 Dose: 325 mg Atorvastatin Calcium (Lipitor) 80 mg PO BEDTIME [facility] Last Admin: 08/20/17 20:01 Dose: 80 mg Sodium Chloride (Normal Saline) 1,000 mls @ 125 mls/hr IV STAT [facility] Last Admin: 08/19/17 19:22 Dose: 125 mls/hr Dextrose/Sodium Chloride (Dextrose 5%-1/2 Ns) 1,000 mls @ 50 mls/hr IV ASDIRECTED [facility] Last Admin: 08/20/17 16:21 Dose: 50 mls/hr Tramadol HCl (Ultram) 50 mg PO Q4H PRN PRN Reason: Pain Tramadol HCl (Ultram) 50 mg PO Q12H PRN PRN Reason: Pain *Q Meaningful Use (DIS) - VTE *Q VTE Criteria *Q: - Stroke *Q Stroke Criteria *Q: - AMI *Q AMI Criteria *Q:
[2017-08-21 09:34] VITALS: BP 125/73
--- NOTE | 2017-08-21 14:20 | ECHO ---
EXAM DATE: 08/19/17 PATIENT'S AGE: 86 The echocardiogram report can be seen in this patient's EMR (Electronic Medical Record) in the Reports section. The report has also been scanned in PACs. CHUY
== END 2017-08-21 12:25 | DRG 66 ==
LOC: MW.ED 09:43 → MW.MS 11:26
PROVIDERS: ADMIT Family Medicine; ATTEND Family Medicine
DX: I63.9 Cerebral infarction, unspecified (principal); I10 Essential (primary) hypertension; E78.00 Pure hypercholesterolemia, unspecified; F03.90 Unspecified dementia, unspecified severity, without behavioral disturbance, psychotic disturbance, mood disturbance, and anxiety; H35.30 Unspecified macular degeneration; Z87.891 Personal history of nicotine dependence; Z79.899 Other long term (current) drug therapy
CPT/HCPCS: 71010; 70450; 93880; 96360; 99285; 93005; 85025; 85610; 36415; 80053; 80061; 82550; 82553; 84484; A9270; J7040; 51702; 80048; 81001; 92610-GN; 93306; 97161-GP; 97165-GO; 97530-GP; 99284; J7042

== ENCOUNTER 2017-09-11 12:41 | Inpatient (IN) | payer MEDICARE, BC ==
[2017-09-11] MEDS ORDERED: Sodium Chloride 0.9% 10 ML Syringe FLUSH PRN (13:41)
[2017-09-11] MEDS ORDERED: Sodium Chloride 0.9% 2.5 ML Syringe FLUSH PRN (13:41)
[2017-09-11] MEDS ORDERED: Sodium Chloride 0.9% 1,000 ML IV SCH (13:45)
--- NOTE | 2017-09-11 13:46 | EDM.PDOC ---
ED HPI GENERAL MEDICAL PROBLEM - General Chief Complaint: General Stated Complaint: LETHARGY Time Seen by Provider: 09/11/17 13:28 - History of Present Illness INITIAL COMMENTS - FREE TEXT/NARRATIVE: HISTORY AND PHYSICAL: History of present illness: The patient is 86-year-old female who resides at [facility] and has a history of dementia hypertension and hypercholesterolemia iron deficiency anemia and CVA with left-sided paralysis and presents via [place] bus with reports of a low hemoglobin by blood work done today, 7.4, and increasing lethargy and activity. The timeframe of her decreased activity and responsiveness is unclear as it was not reported. The lesser perform this morning and again I am unsure why this blood tests were performed. She has a known history of iron deficiency anemia and is currently taking iron. There were no reports of fever cough syncope or trauma. The patient here in the ED is unable to offer any history as she is very lethargic and is arousable to movement and discomfort that does not follow commands or answer questions on my evaluation. She is maintaining her airway. It should be noted the patient is a code 3 status. History is limited as the patient does not offer much on the paperwork does not offer much information regarding the time course of all of these events. It is noted that the patient was admitted here August 18 through August 21 for left-sided weakness and CVA. Review of systems: As per history of present illness and below otherwise all systems reviewed and negative. Past medical history: As per history of present illness and as reviewed below otherwise noncontributory. Surgical history: As per history of present illness and as reviewed below otherwise noncontributory. Social history: No reported history of drug or alcohol abuse. Family history: As per history of present illness and as reviewed below otherwise noncontributory. Physical exam: Gen.: Thin cachectic female who is nontoxic and does not follow commands or respond to simple voice. Vital signs were noted by me. HEENT: Atraumatic, normocephalic, pupils are mid range and sluggish, conjunctiva with slight pallor but no scleral icterus, mucous membranes tacky, throat clear, neck supple, nontender, trachea midline. Lungs: Clear to auscultation but very diminished effort and diminished breath sounds in the bases, there is no work of breathing, breath sounds equal bilaterally, chest nontender. Heart: S1S2, regular rate and rhythm and a soft systolic ejection murmur is appreciated at the left sternal border. Abdomen: Soft, nondistended, nontender. Bowel sounds are hypoactive and there is no rebound or guarding Negative for masses or hepatosplenomegaly. Negative for costovertebral tenderness. Pelvis: Stable nontender. Genitourinary: Deferred. Rectal: There is black stool in the vault, consistent with the patient's iron use, but it is heme positive. There is normal tone. Extremities: Atraumatic except for old skin tears and scab seen on the upper extremities but no bony deformities or defects, Neurovascular unremarkable. Neuro: Patient is drowsy and arousable only to gross stimulation such as sitting her up and taking her shirt off. She does not seem to have any focal motor deficits despite her history of CVA but exam is very challenging and incomplete. Skin: Turgor is diminished there are only the old skin tears and scab seen as described above and there are no gross rashes seen Diagnostics: EKG chest x-ray CT scan of the head CBC CMP INR troponin TSH UA urine culture type and screen Therapeutics: IV O2 monitor gentle IV fluids and Rocephin Protonix 1345: After we removed the patient's close and moved her to a different room she has now talking more telling me that she is upset that we would hurt her and she denies chest pain shortness of breath or abdominal pain and is moving more spontaneously. She says her left side is her weak side and she does not move that side very much. Consistent with her history on the paperwork that she had a CVA with left-sided paralysis. We will continue to monitor her her workup and plan for admission 1500: With some IV fluids the patient is more responsive and has better color overall and there are close friends at bedside who state that when they walked in and started talking to her she knew they were. According to paperwork and the friends at bedside the patient's power of liquid flavor compounder is her younger sister who is 85 years of old and lives in [place]. At this point I will plan on admission to the hospital and we discussed the case with Dr. Hassan and we'll hold giving any blood at this time. I will continue with IV fluids and the Rocephin and further care can be dictated by conversations between the power of liquid flavor compounder and the hospitalist going forward. I'm attempting to contact the patient's provider at [facility], Dr. Ortiz, to get more direction regarding how aggressive the care plan was discussed in the past. 1507: Case was discussed with Dr. Ortiz and he states that he feels that conservative approach to this patient would likely be indicated but that we can check with her POA. 1512: Dr. Hassan our hospitalist is aware of this case and is in the ER seeing the patient. He is aware of all testing results and at this point he would like to refrain from giving blood and does continue with IV hydration and antibiotics. Impression: Dehydration, Anemia with heme positive stool, altered mental status, UTI, history of recent CVA with left-sided weakness, history of iron deficiency anemia Definitive disposition and diagnosis as appropriate pending reevaluation and review of above. - Related Data Allergies Allergy/AdvReac Type Severity Reaction Status Date / Time No Known Allergies Allergy Verified 09/11/17 13:14 Home Meds: Home Meds Betaxolol HCl [Betaxolol] 10 mg PO DAILY 06/25/17 [History] Multivits,Ca,Minerals/Iron/FA [One-A-Day Women's] 1 tab PO DAILY 06/25/17 [ History] Triamterene/Hydrochlorothiazid [Triamterene-HCTZ 75-50 MG] 1 tab PO DAILY [History] Dextran 70/Hypromellose/PF [Artificial Tears Drops] 1 drop EYEBOTH BID 08/17/17 [History] Magnesium Hydroxide [Milk of Magnesia] 30 ml PO DAILY PRN 08/17/17 [History] Acetaminophen [Tylenol] 650 mg PO Q6H PRN 08/19/17 [History] Ferrous Sulfate 325 mg PO WITHBREAKFAST 08/19/17 [History] atorvaSTATin [Lipitor] 80 mg PO BEDTIME 7 Days #7 tablet 08/21/17 [Rx] traMADol HCl [Ultram] 50 mg PO Q8H PRN #30 tablet 08/21/17 [Rx] Aspirin 325 mg PO DAILY 09/11/17 [History] Docusate Sodium [Colace] 100 mg PO DAILY 09/11/17 [History] LORazepam [Ativan] 0.5 mg PO BID PRN 09/11/17 [History] Past Medical History - Past Health History Medical/Surgical History: Denies Medical/Surgical History HEENT History: Reports: Impaired Vision, Macular Degeneration Cardiovascular History: Reports: High Cholesterol, Hypertension Respiratory History: Reports: None Other Respiratory History: solitary pulmonary nodule Gastrointestinal History: Reports: None Genitourinary History: Reports: None Musculoskeletal History: Reports: Other (See Below) Other Musculoskeletal History: weakness Neurological History: Reports: CVA, Other (See Below) Other Neuro History: disorientation;dementia Psychiatric History: Reports: None Endocrine/Metabolic History: Reports: Other (See Below) Other Endocrine/Metabolic History: thyroid problem? Hematologic History: Reports: Anemia Immunologic History: Reports: None Oncologic (Cancer) History: Reports: None Dermatologic History: Reports: None - Infectious Disease History Infectious Disease History: Reports: None - Past Surgical History Head Surgeries/Procedures: Reports: None GI Surgical History: Reports: None Female Surgical History: Reports: None Oncologic Surgical History: Reports: None Dermatological Surgical History: Reports: None Social & Family History - Family History Family Medical History: Unobtainable - Tobacco Use Smoking Status *Q: Unknown Ever Smoked Used Tobacco, but Quit: Yes Month Tobacco Last Used: 2012 Second Hand Smoke Exposure: No - Caffeine Use Caffeine Use: Reports: Coffee Caffeine Use Comment: 2 cups daily - Recreational Drug Use Recreational Drug Use: No ED ROS GENERAL - Review of Systems Review Of Systems: ROS reveals no pertinent complaints other than HPI. ED EXAM, GENERAL - Physical Exam Exam: See Below (See dictation) Course - Vital Signs Last Recorded V/S: Last Vital Signs Temp 36.7 C 09/11/17 13:17 Pulse 72 09/11/17 13:17 Resp 20 09/11/17 13:17 BP 108/57 L 09/11/17 13:17 Pulse Ox 96 09/11/17 13:40 - Orders/Labs/Meds Orders: Active Orders 24 hr Category Date Time Status Blood Glucose Check, Bedside [RC] ONETIME Care 09/11/17 13:40 Active Cardiac Monitoring [RC] . DIRECTED Care 09/11/17 13:40 Active EKG Documentation Completion [RC] STAT Care 09/11/17 13:40 Active Oxygen Therapy, ED [RC] ASDIRECTED Care 09/11/17 13:40 Active Pulse Oximetry [RC] ASDIRECTED Care 09/11/17 13:40 Active CULTURE URINE [RM] Stat Lab 09/11/17 13:34 Received Sodium Chloride 0.9% [Normal Saline] 1,000 ml Med 09/11/17 13:45 Active IV ASDIRECTED Sodium Chloride 0.9% [Saline Flush] Med 09/11/17 13:41 Active 10 ml FLUSH ASDIRECTED PRN Sodium Chloride 0.9% [Saline Flush] Med 09/11/17 13:41 Active 2.5 ml FLUSH ASDIRECTED PRN Saline Lock Insert [OM.PC] Stat Oth 09/11/17 13:40 Ordered Medication Orders Sodium Chloride (Normal Saline) 1,000 mls @ 70 mls/hr IV ASDIRECTED CONSUELO Last Admin: 09/11/17 14:01 Dose: 70 mls/hr Sodium Chloride (Saline Flush) 10 ml FLUSH ASDIRECTED PRN PRN Reason: Keep Vein Open Last Admin: 09/11/17 14:01 Dose: 10 ml Sodium Chloride (Saline Flush) 2.5 ml FLUSH ASDIRECTED PRN PRN Reason: Keep Vein Open Last Admin: 09/11/17 14:01 Dose: 2.5 ml Labs: Laboratory Tests 09/11/17 09/11/17 09/11/17 Range/Units 13:34 13:50 13:50 WBC 5.07 (4.0-11.0) K/uL RBC 3.61 L (4.30-5.90) M/uL Hgb 8.6 L (12.0-16.0) g/dL Hct 28.5 L (36.0-46.0) % MCV 78.9 L (80.0-98.0) fL MCH 23.8 L (27.0-32.0) pg MCHC 30.2 L (31.0-37.0) g/dL RDW Std Deviation 57.8 (28.0-62.0) fl RDW Coeff of Sera 20 H (11.0-15.0) % Plt Count 321 (150-400) K/uL MPV 8.70 (7.40-12.00) fL Neut % (Auto) 72.7 (48.0-80.0) % Lymph % (Auto) 16.8 (16.0-40.0) % [place] % (Auto) 9.7 (0.0-15.0) % Eos % (Auto) 0.6 (0.0-7.0) % Baso % (Auto) 0.2 (0.0-1.5) % Neut # (Auto) 3.7 (1.4-5.7) K/uL Lymph # (Auto) 0.9 (0.6-2.4) K/uL [place] # (Auto) 0.5 (0.0-0.8) K/uL Eos # (Auto) 0.0 (0.0-0.7) K/uL Baso # (Auto) 0.0 (0.0-0.1) K/uL Nucleated RBC % 0.0 /100WBC Nucleated RBCs # 0 K/uL INR 0.99 (0.86-1.11) Sodium (136-146) mmol/L Potassium (3.5-5.1) mmol/L Chloride (98-110) mmol/L Carbon Dioxide (21-31) mmol/L BUN (6.0-23.0) mg/dL Creatinine (0.6-1.5) mg/dL Est Cr Clr Drug Dosing Estimated GFR (MDRD) ml/min Glucose (60-110) mg/dL POC Glucose (60-110) mg/dL Calcium (8.8-10.8) mg/dL Total Bilirubin (0.1-1.5) mg/dL AST (5-40) IU/L ALT (8-54) IU/L Alkaline Phosphatase (40-150) Troponin I (0.0-0.29) NG/ML Total Protein (6.0-8.0) g/dL Albumin (3.4-4.8) g/dL Globulin (2.0-3.5) g/dL Albumin/Globulin Ratio (1.3-2.8) TSH 3rd Generation (0.47-5.0) uIU/mL Urine Color HAIDER Urine Appearance BLOODY Urine pH 8.5 H (5.0-8.0) Ur Specific [place] 1.015 (1.001-1.035) Urine Protein >=300 (NEGATIVE) mg/dL Urine Glucose (UA) NEGATIVE (NEGATIVE) mg/dL Urine Ketones TRACE H (NEGATIVE) mg/dL Urine Occult Blood LARGE H (NEGATIVE) Urine Nitrite POSITIVE H (NEGATIVE) Urine Bilirubin MODERATE H (NEGATIVE) Urine Ictotest NEGATIVE Urine Urobilinogen 1.0 (<2.0) EU/dL Ur Leukocyte Esterase SMALL (NEGATIVE) Urine RBC TOO NUMBEROUS TO CT H (0-2/HPF) Urine WBC 10-15 (0-5/HPF) Ur Epithelial Cells OCCASIONAL (NONE-FEW) Amorphous Sediment MODERATE (NEGATIVE) Urine Bacteria 3+ H (NEGATIVE) Blood Type Antibody Screen 09/11/17 09/11/17 09/11/17 Range/Units 13:50 13:50 15:05 WBC (4.0-11.0) K/uL RBC (4.30-5.90) M/uL Hgb (12.0-16.0) g/dL Hct (36.0-46.0) % MCV (80.0-98.0) fL MCH (27.0-32.0) pg MCHC (31.0-37.0) g/dL RDW Std Deviation (28.0-62.0) fl RDW Coeff of Sera (11.0-15.0) % Plt Count (150-400) K/uL MPV (7.40-12.00) fL Neut % (Auto) (48.0-80.0) % Lymph % (Auto) (16.0-40.0) % [place] % (Auto) (0.0-15.0) % Eos % (Auto) (0.0-7.0) % Baso % (Auto) (0.0-1.5) % Neut # (Auto) (1.4-5.7) K/uL Lymph # (Auto) (0.6-2.4) K/uL [place] # (Auto) (0.0-0.8) K/uL Eos # (Auto) (0.0-0.7) K/uL Baso # (Auto) (0.0-0.1) K/uL Nucleated RBC % /100WBC Nucleated RBCs # K/uL INR (0.86-1.11) Sodium 137 (136-146) mmol/L Potassium 5.1 (3.5-5.1) mmol/L Chloride 101 (98-110) mmol/L Carbon Dioxide 27 (21-31) mmol/L BUN 76 H (6.0-23.0) mg/dL Creatinine 1.7 H (0.6-1.5) mg/dL Est Cr Clr Drug Dosing TNP Estimated GFR (MDRD) 28.5 ml/min Glucose 162 H (60-110) mg/dL POC Glucose 152 H (60-110) mg/dL Calcium 9.7 (8.8-10.8) mg/dL Total Bilirubin 0.6 (0.1-1.5) mg/dL AST 28 (5-40) IU/L ALT 13 (8-54) IU/L Alkaline Phosphatase 184 H (40-150) Troponin I < 0.10 (0.0-0.29) NG/ML Total Protein 7.2 (6.0-8.0) g/dL Albumin 3.2 L (3.4-4.8) g/dL Globulin 4.0 H (2.0-3.5) g/dL Albumin/Globulin Ratio 0.8 L (1.3-2.8) TSH 3rd Generation 1.46 (0.47-5.0) uIU/mL Urine Color Urine Appearance Urine pH (5.0-8.0) Ur Specific [place] (1.001-1.035) Urine Protein (NEGATIVE) mg/dL Urine Glucose (UA) (NEGATIVE) mg/dL Urine Ketones (NEGATIVE) mg/dL Urine Occult Blood (NEGATIVE) Urine Nitrite (NEGATIVE) Urine Bilirubin (NEGATIVE) Urine Ictotest Urine Urobilinogen (<2.0) EU/dL Ur Leukocyte Esterase (NEGATIVE) Urine RBC (0-2/HPF) Urine WBC (0-5/HPF) Ur Epithelial Cells (NONE-FEW) Amorphous Sediment (NEGATIVE) Urine Bacteria (NEGATIVE) Blood Type O POSITIVE Antibody Screen NEGATIVE Meds: Medications Generic Name Dose Route Start Last Admin Trade Name Freq PRN Reason Stop Dose Admin Sodium Chloride 1,000 mls @ 70 mls/hr 09/11/17 13:45 09/11/17 14:01 Normal Saline IV 70 mls/hr ASDIRECTED CONSUELO Administration Sodium Chloride 10 ml 09/11/17 13:41 09/11/17 14:01 Saline Flush FLUSH 10 ml ASDIRECTED PRN Administration Keep Vein Open Sodium Chloride 2.5 ml 09/11/17 13:41 09/11/17 14:01 Saline Flush FLUSH 2.5 ml ASDIRECTED PRN Administration Keep Vein Open Discontinued Medications Generic Name Dose Route Start Last Admin Trade Name Mainorq PRN Reason Stop Dose Admin Ceftriaxone Sodium/Dextrose 1 50 mls @ 100 mls/hr 09/11/17 14:41 09/11/17 14: 53 gm/ Premix IV 09/11/17 15:10 100 mls/hr ONETIME ONE Administration Pantoprazole Sodium 40 mg/ 10 mls @ 300 mls/hr 09/11/17 14:53 Sodium Chloride IVPUSH 09/11/17 14:54 NOW ONE Departure - Departure Time of Disposition: 15:17 Disposition: Admitted As Inpatient 66 Condition: Fair Clinical Impression: Dehydration UTI (urinary tract infection) Qualifiers: Urinary tract infection type: site unspecified Hematuria presence: without hematuria Qualified Code(s): N39.0 - Urinary tract infection, site not specified Altered mental status Qualifiers: Altered mental status type: unspecified Qualified Code(s): R41.82 - Altered mental status, unspecified Anemia Qualifiers: Anemia type: unspecified type Qualified Code(s): D64.9 - Anemia, unspecified - Discharge Information Referrals: Jean Ortiz MD [Primary Care Provider] - Forms: ED Department Discharge - My Orders Last 24 Hours: My Active Orders 09/11/17 13:34 CULTURE URINE [RM] Stat 09/11/17 13:40 Blood Glucose Check, Bedside [RC] ONETIME Cardiac Monitoring [RC] . DIRECTED EKG Documentation Completion [RC] STAT Oxygen Therapy, ED [RC] ASDIRECTED Pulse Oximetry [RC] ASDIRECTED Saline Lock Insert [OM.PC] Stat 09/11/17 13:41 Sodium Chloride 0.9% [Saline Flush] 10 ml FLUSH ASDIRECTED PRN Sodium Chloride 0.9% [Saline Flush] 2.5 ml FLUSH ASDIRECTED PRN 09/11/17 13:45 Sodium Chloride 0.9% [Normal Saline] 1,000 ml IV ASDIRECTED - Assessment/Plan Last 24 Hours: My Active Orders 09/11/17 13:34 CULTURE URINE [RM] Stat 09/11/17 13:40 Blood Glucose Check, Bedside [RC] ONETIME Cardiac Monitoring [RC] . DIRECTED EKG Documentation Completion [RC] STAT Oxygen Therapy, ED [RC] ASDIRECTED Pulse Oximetry [RC] ASDIRECTED Saline Lock Insert [OM.PC] Stat 09/11/17 13:41 Sodium Chloride 0.9% [Saline Flush] 10 ml FLUSH ASDIRECTED PRN Sodium Chloride 0.9% [Saline Flush] 2.5 ml FLUSH ASDIRECTED PRN 09/11/17 13:45 Sodium Chloride 0.9% [Normal Saline] 1,000 ml IV ASDIRECTED
[2017-09-11 14:20] LABS: CHLORIDE,CL 101 mmol/L (98-110); SODIUM,NA 137 mmol/L (136-146)
[2017-09-11] MEDS ORDERED: cefTRIAXone 1 GM in Premix Bag 1 BAG IV ONE (14:41)
[2017-09-11] MEDS ORDERED: Pantoprazole 40 MG in Sodium Chloride 0.9% 10 ML IVPUSH ONE (14:53)
--- NOTE | 2017-09-11 14:54 | CT ---
EXAMINATION: Non contrast CT head. Coronal and sagittal reformats. HISTORY: Pain FINDINGS: No evidence of intra or extra axial hemorrhage, mass, midline shift, hydrocephalus or edema. There i s mild generalized atrophy. Moderate confluent periventricular and subcortical white matter hypodensi ties are noted. There is possibly mild encephalomalacia noted at the right frontoparietal junction. U nchanged. No hypoattenuation changes in the major vascular territories to suggest acute infarct. No abnormal i ntracranial calcifications are detected. Mild vascular calcifications are noted. Paranasal sinuses and mastoid air cells are well aerated without substantial findings. The pituitary fossa appears unremarkable. The calvarium is intact. No evidence of skull fracture. IMPRESSION: 1. No acute intracranial findings. 2. Prominent generalized atrophy and small vessel ischemic changes.
--- NOTE | 2017-09-11 14:55 | CR ---
EXAMINATION: Portable chest radiograph. HISTORY: Pain, shortness of breath. COMPARISON: 08/19/2017. FINDINGS: The trachea is midline. The cardiomediastinal silhouette is within normal limits. Chronic interstitia l changes again noted. No focal consolidation, pleural effusion, or pneumothorax. Mild vascular calci fications. Osseous structures appear osteopenic. IMPRESSION: Chronic interstitial changes and scarring without a definite acute cardiopulmonary finding.
[2017-09-11] MEDS ORDERED: LORazepam 0.5 MG Tab PO PRN (15:32)
[2017-09-11] MEDS ORDERED: Magnesium Hydroxide 400 MG/5 ML Susp 30 ML Cup PO PRN (15:32)
--- NOTE | 2017-09-11 15:35 | PCM.HP ---
H&P History of Present Illness - General Date of Service: 09/11/17 Admit Problem/Dx: Admission Diagnosis/Problem Admission Diagnosis/Problem Dehydration Source of Information: Long Term Records History Limitations: Reports: Altered Mental Status - History of Present Illness Initial Comments - Free Text/Narative: The patient was brought into the emergency room secondary to low hemoglobin today. The patient does have a history of dementia along with iron deficiency anemia and CVA with dense left-sided hemiparesis. The patient was reported to have been nonresponsive. The patient does not have family members locally and she has not been able to participate in any meaningful way with her history and physical. She is minimally responsive. Information has been obtained from previous charting. The patient also at this time is in a DO NOT INTUBATE DO NOT RESUSCITATE category. Onset of Symptoms: Reports: Gradual, Unknown/Unsure Duration of Symptoms: Reports: Getting Worse Improves with: Reports: None Worsens with: Reports: None - Related Data Allergies/Adverse Reactions: Allergies Allergy/AdvReac Type Severity Reaction Status Date / Time No Known Allergies Allergy Verified 09/11/17 13:14 Home Medications: Home Meds Betaxolol HCl [Betaxolol] 10 mg PO DAILY 06/25/17 [History] Multivits,Ca,Minerals/Iron/FA [One-A-Day Women's] 1 tab PO DAILY 06/25/17 [ History] Triamterene/Hydrochlorothiazid [Triamterene-HCTZ 75-50 MG] 1 tab PO DAILY [History] Dextran 70/Hypromellose/PF [Artificial Tears Drops] 1 drop EYEBOTH BID 08/17/17 [History] Magnesium Hydroxide [Milk of Magnesia] 30 ml PO DAILY PRN 08/17/17 [History] Acetaminophen [Tylenol] 650 mg PO Q6H PRN 08/19/17 [History] Ferrous Sulfate 325 mg PO WITHBREAKFAST 08/19/17 [History] atorvaSTATin [Lipitor] 80 mg PO BEDTIME 7 Days #7 tablet 08/21/17 [Rx] traMADol HCl [Ultram] 50 mg PO Q8H PRN #30 tablet 08/21/17 [Rx] Aspirin 325 mg PO DAILY 09/11/17 [History] Docusate Sodium [Colace] 100 mg PO DAILY 09/11/17 [History] LORazepam [Ativan] 0.5 mg PO BID PRN 09/11/17 [History] Past Medical History - Past Health History Medical/Surgical History: Denies Medical/Surgical History HEENT History: Reports: Impaired Vision, Macular Degeneration Cardiovascular History: Reports: High Cholesterol, Hypertension Respiratory History: Reports: None Other Respiratory History: solitary pulmonary nodule Gastrointestinal History: Reports: None Genitourinary History: Reports: None Musculoskeletal History: Reports: Other (See Below) Other Musculoskeletal History: weakness Neurological History: Reports: CVA, Other (See Below) Other Neuro History: disorientation;dementia Psychiatric History: Reports: None Endocrine/Metabolic History: Reports: Other (See Below) Other Endocrine/Metabolic History: thyroid problem? Hematologic History: Reports: Anemia Immunologic History: Reports: None Oncologic (Cancer) History: Reports: None Dermatologic History: Reports: None - Infectious Disease History Infectious Disease History: Reports: None - Past Surgical History Head Surgeries/Procedures: Reports: None GI Surgical History: Reports: None Female Surgical History: Reports: None Oncologic Surgical History: Reports: None Dermatological Surgical History: Reports: None Social & Family History - Family History Family Medical History: Unobtainable - Tobacco Use Smoking Status *Q: Unknown Ever Smoked Used Tobacco, but Quit: Yes Month Tobacco Last Used: 2012 Second Hand Smoke Exposure: No - Caffeine Use Caffeine Use: Reports: Coffee Caffeine Use Comment: 2 cups daily - Recreational Drug Use Recreational Drug Use: No H&P Review of Systems - Review of Systems: Review Of Systems: Unable To Obtain Free Text/Narrative: Dementia, not responsive Exam - Exam Exam: See Below - Vital Signs Vital Signs: Last Vital Signs Temp 36.7 C 09/11/17 13:17 Pulse 74 09/11/17 15:28 Resp 12 09/11/17 15:28 BP 116/61 09/11/17 15:28 Pulse Ox 96 09/11/17 15:28 Weight: 45.405 kg - Exam Quality Assessment: No: Supplemental Oxygen General: Cooperative. No: Alert, Oriented HEENT: Conjunctiva Clear. No: Mucosa Moist & Trail (Extremely dry) Neck: Supple, Trachea Midline Lungs: Clear to Auscultation, Normal Respiratory Effort Cardiovascular: Regular Rhythm, Irregular Rhythm GI/Abdominal Exam: Normal Bowel Sounds, Soft, Non-Tender (No reaction to palpation) Back Exam: Decreased Range of Motion Extremities: No Pedal Edema Neurological: No: Reflexes Equal Bilateral, Strength Equal Bilateral Neuro Extensive - Motor, Sensory, Reflexes: Hemeplagia (L) Psychiatric: No: Alert - Patient Data Lab Results Last 24 hrs: Laboratory Results - last 24 hr 09/11/17 09/11/17 09/11/17 Range/Units 13:34 13:50 13:50 WBC 5.07 (4.0-11.0) K/uL RBC 3.61 L (4.30-5.90) M/uL Hgb 8.6 L (12.0-16.0) g/dL Hct 28.5 L (36.0-46.0) % MCV 78.9 L (80.0-98.0) fL MCH 23.8 L (27.0-32.0) pg MCHC 30.2 L (31.0-37.0) g/dL RDW Std Deviation 57.8 (28.0-62.0) fl RDW Coeff of Sera 20 H (11.0-15.0) % Plt Count 321 (150-400) K/uL MPV 8.70 (7.40-12.00) fL Neut % (Auto) 72.7 (48.0-80.0) % Lymph % (Auto) 16.8 (16.0-40.0) % [place] % (Auto) 9.7 (0.0-15.0) % Eos % (Auto) 0.6 (0.0-7.0) % Baso % (Auto) 0.2 (0.0-1.5) % Neut # (Auto) 3.7 (1.4-5.7) K/uL Lymph # (Auto) 0.9 (0.6-2.4) K/uL [place] # (Auto) 0.5 (0.0-0.8) K/uL Eos # (Auto) 0.0 (0.0-0.7) K/uL Baso # (Auto) 0.0 (0.0-0.1) K/uL Nucleated RBC % 0.0 /100WBC Nucleated RBCs # 0 K/uL INR 0.99 (0.86-1.11) Sodium (136-146) mmol/L Potassium (3.5-5.1) mmol/L Chloride (98-110) mmol/L Carbon Dioxide (21-31) mmol/L BUN (6.0-23.0) mg/dL Creatinine (0.6-1.5) mg/dL Est Cr Clr Drug Dosing Estimated GFR (MDRD) ml/min Glucose (60-110) mg/dL POC Glucose (60-110) mg/dL Calcium (8.8-10.8) mg/dL Total Bilirubin (0.1-1.5) mg/dL AST (5-40) IU/L ALT (8-54) IU/L Alkaline Phosphatase (40-150) Troponin I (0.0-0.29) NG/ML Total Protein (6.0-8.0) g/dL Albumin (3.4-4.8) g/dL Globulin (2.0-3.5) g/dL Albumin/Globulin Ratio (1.3-2.8) TSH 3rd Generation (0.47-5.0) uIU/mL Urine Color HAIDER Urine Appearance BLOODY Urine pH 8.5 H (5.0-8.0) Ur Specific [place] 1.015 (1.001-1.035) Urine Protein >=300 (NEGATIVE) mg/dL Urine Glucose (UA) NEGATIVE (NEGATIVE) mg/dL Urine Ketones TRACE H (NEGATIVE) mg/dL Urine Occult Blood LARGE H (NEGATIVE) Urine Nitrite POSITIVE H (NEGATIVE) Urine Bilirubin MODERATE H (NEGATIVE) Urine Ictotest NEGATIVE Urine Urobilinogen 1.0 (<2.0) EU/dL Ur Leukocyte Esterase SMALL (NEGATIVE) Urine RBC TOO NUMBEROUS TO CT H (0-2/HPF) Urine WBC 10-15 (0-5/HPF) Ur Epithelial Cells OCCASIONAL (NONE-FEW) Amorphous Sediment MODERATE (NEGATIVE) Urine Bacteria 3+ H (NEGATIVE) Blood Type Antibody Screen 09/11/17 09/11/17 09/11/17 Range/Units 13:50 13:50 15:05 WBC (4.0-11.0) K/uL RBC (4.30-5.90) M/uL Hgb (12.0-16.0) g/dL Hct (36.0-46.0) % MCV (80.0-98.0) fL MCH (27.0-32.0) pg MCHC (31.0-37.0) g/dL RDW Std Deviation (28.0-62.0) fl RDW Coeff of Sera (11.0-15.0) % Plt Count (150-400) K/uL MPV (7.40-12.00) fL Neut % (Auto) (48.0-80.0) % Lymph % (Auto) (16.0-40.0) % [place] % (Auto) (0.0-15.0) % Eos % (Auto) (0.0-7.0) % Baso % (Auto) (0.0-1.5) % Neut # (Auto) (1.4-5.7) K/uL Lymph # (Auto) (0.6-2.4) K/uL [place] # (Auto) (0.0-0.8) K/uL Eos # (Auto) (0.0-0.7) K/uL Baso # (Auto) (0.0-0.1) K/uL Nucleated RBC % /100WBC Nucleated RBCs # K/uL INR (0.86-1.11) Sodium 137 (136-146) mmol/L Potassium 5.1 (3.5-5.1) mmol/L Chloride 101 (98-110) mmol/L Carbon Dioxide 27 (21-31) mmol/L BUN 76 H (6.0-23.0) mg/dL Creatinine 1.7 H (0.6-1.5) mg/dL Est Cr Clr Drug Dosing TNP Estimated GFR (MDRD) 28.5 ml/min Glucose 162 H (60-110) mg/dL POC Glucose 152 H (60-110) mg/dL Calcium 9.7 (8.8-10.8) mg/dL Total Bilirubin 0.6 (0.1-1.5) mg/dL AST 28 (5-40) IU/L ALT 13 (8-54) IU/L Alkaline Phosphatase 184 H (40-150) Troponin I < 0.10 (0.0-0.29) NG/ML Total Protein 7.2 (6.0-8.0) g/dL Albumin 3.2 L (3.4-4.8) g/dL Globulin 4.0 H (2.0-3.5) g/dL Albumin/Globulin Ratio 0.8 L (1.3-2.8) TSH 3rd Generation 1.46 (0.47-5.0) uIU/mL Urine Color Urine Appearance Urine pH (5.0-8.0) Ur Specific [place] (1.001-1.035) Urine Protein (NEGATIVE) mg/dL Urine Glucose (UA) (NEGATIVE) mg/dL Urine Ketones (NEGATIVE) mg/dL Urine Occult Blood (NEGATIVE) Urine Nitrite (NEGATIVE) Urine Bilirubin (NEGATIVE) Urine Ictotest Urine Urobilinogen (<2.0) EU/dL Ur Leukocyte Esterase (NEGATIVE) Urine RBC (0-2/HPF) Urine WBC (0-5/HPF) Ur Epithelial Cells (NONE-FEW) Amorphous Sediment (NEGATIVE) Urine Bacteria (NEGATIVE) Blood Type O POSITIVE Antibody Screen NEGATIVE Result Diagrams: 09/12/17 17:00 09/12/17 05:01 *Q Meaningful Use (ADM) - VTE *Q VTE Criteria *Q: VTE Mechanical Contraindications *Q: At Risk for Falls VTE Pharmacological Contraindications *Q: Risk of Bleeding - VTE Risk Assess *Q Each Risk Factor Represents 3 Points: Age 75 Years or Greater Total Score 3 Point Risk Factors: 3 - Stroke *Q Stroke Criteria *Q: - AMI *Q AMI Criteria *Q: - Problem List (1) Altered mental status SNOMED Code(s): 852319455 ICD Code: R41.82 - ALTERED MENTAL STATUS, UNSPECIFIED Status: Acute Priority: Medium Current Visit: Yes Qualifiers: Altered mental status type: disorientation Qualified Code(s): R41.0 - Disorientation, unspecified (2) Anemia SNOMED Code(s): 101196624 ICD Code: D64.9 - ANEMIA, UNSPECIFIED Status: Chronic Priority: High Current Visit: Yes Qualifiers: Anemia type: unspecified type Qualified Code(s): D64.9 - Anemia, unspecified (3) Dementia SNOMED Code(s): 63231702 ICD Code: F03.90 - UNSPECIFIED DEMENTIA WITHOUT BEHAVIORAL DISTURBANCE Status: Chronic Priority: Medium Current Visit: Yes (4) Neurological dysfunction SNOMED Code(s): 308030206 ICD Code: R29.90 - UNSPECIFIED SYMPTOMS AND SIGNS INVOLVING THE NERVOUS SYSTEM Status: Chronic Priority: Medium Current Visit: Yes Problem List Initiated/Reviewed/Updated: Yes Orders Last 24hrs: Active Orders 24 hr Category Date Time Status Patient Status [ADT] Routine ADT 09/11/17 15:27 Ordered Antiembolic Devices [RC] PER UNIT ROUTINE Care 09/11/17 15:31 Ordered Bedrest Bedside Commode [RC] ASDIRECTED Care 09/11/17 15:27 Ordered Blood Glucose Check, Bedside [RC] ONETIME Care 09/11/17 13:40 Active Cardiac Monitoring [RC] . DIRECTED Care 09/11/17 13:40 Active EKG Documentation Completion [RC] STAT Care 09/11/17 13:40 Active Oxygen Therapy [RC] PRN Care 09/11/17 15:27 Ordered Oxygen Therapy, ED [RC] ASDIRECTED Care 09/11/17 13:40 Active Pulse Oximetry [RC] ASDIRECTED Care 09/11/17 13:40 Active Urinary Catheter Assessment [RC] ASDIRECTED Care 09/11/17 15:27 Ordered VTE/DVT Education [RC] PER UNIT ROUTINE Care 09/11/17 15:27 Ordered Vital Signs [RC] Q4H Care 09/11/17 15:27 Ordered Mechanical Soft Diet [DIET] Diet 09/11/17 Dinner Ordered CBC WITH AUTO DIFF [HEME] AM Lab 09/12/17 05:11 Ordered COMPREHENSIVE METABOLIC PN,CMP [CHEM] AM Lab 09/12/17 05:11 Ordered CULTURE URINE [RM] Stat Lab 09/11/17 13:34 Received Betaxolol HCl [Betaxolol] Med 09/12/17 09:00 Ordered 10 mg PO DAILY Dextran 70/Hypromellose/PF Med 09/11/17 21:00 Ordered 1 drop EYEBOTH BID LORazepam [Ativan] Med 09/11/17 15:32 Ordered 0.5 mg PO BID PRN Magnesium Hydroxide [Milk of Magnesia] Med 09/11/17 15:32 Ordered 30 ml PO DAILY PRN Sodium Chloride 0.9% [Normal Saline] 1,000 ml Med 09/11/17 13:45 Active IV ASDIRECTED Sodium Chloride 0.9% [Normal Saline] 1,000 ml Med 09/11/17 15:30 Ordered IV ASDIRECTED Sodium Chloride 0.9% [Saline Flush] Med 09/11/17 13:41 Active 10 ml FLUSH ASDIRECTED PRN Sodium Chloride 0.9% [Saline Flush] Med 09/11/17 13:41 Active 2.5 ml FLUSH ASDIRECTED PRN Triamterene/Hydrochlorothiazid [Triamterene-HCTZ 75-50 Med 09/12/17 09:00 Ordered MG] 1 tab PO DAILY cefTRIAXone [Rocephin in Dextrose,Iso-Osm 1 GM/50 ML] 1 Med 09/11/17 15:45 Ordered gm Premix Bag 1 bag IV Q24H traMADol HCl [Ultram] Med 09/11/17 15:32 Ordered 50 mg PO Q8H PRN Antiembolic Hose [OM.PC] Per Unit Routine Oth 09/11/17 15:30 Ordered Saline Lock Insert [OM.PC] Stat Oth 09/11/17 13:40 Ordered VTE Mechanical Contraindications [AST] Per Unit Routine Oth 09/11/17 15:27 Ordered VTE Pharmacological Contraindications [AST] Per Unit Oth 09/11/17 15:27 Ordered Routine Resuscitation Status Routine Resus Stat 09/11/17 15:27 Ordered Medication Orders Sodium Chloride (Normal Saline) 1,000 mls @ 70 mls/hr IV ASDIRECTED [facility] Last Admin: 09/11/17 14:01 Dose: 70 mls/hr Sodium Chloride (Normal Saline) 1,000 mls @ 75 mls/hr IV ASDIRECTED [facility] Ceftriaxone Sodium/Dextrose 1 (gm/ Premix) 50 mls @ 100 mls/hr IV Q24H [facility] Non-Formulary Medication (Lorazepam [Ativan]) 0.5 mg PO BID PRN PRN Reason: Anxiety Non-Formulary Medication (Magnesium Hydroxide [Milk Of Magnesia]) 30 ml PO DAILY PRN PRN Reason: Constipation Non-Formulary Medication (Tramadol Hcl [Ultram]) 50 mg PO Q8H PRN PRN Reason: Pain/PT/Movement Non-Formulary Medication (Dextran 70/Hypromellose/Pf) 1 drop EYEBOTH BID [facility] Non-Formulary Medication (Betaxolol Hcl [Betaxolol]) 10 mg PO DAILY [facility] Non-Formulary Medication (Triamterene/Hydrochlorothiazid [Triamterene-Hctz 75- 50 Mg]) 1 tab PO DAILY [facility] Sodium Chloride (Saline Flush) 10 ml FLUSH ASDIRECTED PRN PRN Reason: Keep Vein Open Last Admin: 09/11/17 14:01 Dose: 10 ml Sodium Chloride (Saline Flush) 2.5 ml FLUSH ASDIRECTED PRN PRN Reason: Keep Vein Open Last Admin: 09/11/17 14:01 Dose: 2.5 ml Assessment/Plan Comment:: The patient has been admitted as an inpatient secondary to her severe anemia. The patient is also currently on DO NOT INTUBATE and DO NOT RESUSCITATE. The patient does have a urinary tract infection and this will be treated with 1 g of Rocephin on a daily basis. The patient thus far has not been able to participate in history and physical. She does have dense left-sided hemiparesis. This will be a challenge for her. It's uncertain if the patient will have approval from her power of commercial attorney which is out of [place]. For now the patient will have her CBC monitored for worsening anemia and questionable transfusions. I recommended against this because of the patient's dimension and her resuscitation status. The patient is otherwise pleasantly demented and she has no memory of her previous visit. The patient will be monitored very closely she'll be gently fluid resuscitated as she is very dry. The patient will have her treatment plan adjusted as conditions and information indicates.
[2017-09-11] MEDS ORDERED: Sodium Chloride 0.9% 20 ML ONE (15:37)
[2017-09-11] MEDS ORDERED: cefTRIAXone 1 GM in Premix Bag 1 BAG IV SCH (15:45)
[2017-09-11] MEDS: traMADol 50 MG Tab PO PRN (18:03)
[2017-09-11] MEDS: Carboxymethylcellulose Sodium 0.5% Ophth Soln 0.4 ML UD Box of 30 EYEBOTH SCH (21:14)
[2017-09-12] MEDS: Sodium Chloride 0.9% 1,000 ML IV SCH ×2 (00:14→13:57)
[2017-09-12] MEDS: traMADol 50 MG Tab PO PRN ×2 (06:20→16:27)
[2017-09-12] MEDS: Carboxymethylcellulose Sodium 0.5% Ophth Soln 0.4 ML UD Box of 30 EYEBOTH SCH ×2 (08:01→20:39)
[2017-09-12] MEDS: Hydrochlorothiazide/Triamterene 50-75 MG Tab PO SCH (08:01)
[2017-09-12] MEDS: BETAXOLOL HCL 10 MG PO SCH (09:00)
--- NOTE | 2017-09-12 12:40 | PCM.PN ---
- General Info Date of Service: 09/12/17 Subjective Update: No complaints this morning. She does have a history of dementia but she is able to convey that she has no complaints right now. She denied having any chest pain , dysuria, fevers or chills. Denied any abdominal pain. Denies any headache. - Review of Systems General: Reports: Other (See history of present illness) - Patient Data Vitals - Most Recent: Last Vital Signs Temp 36.8 C 09/12/17 08:00 Pulse 81 09/12/17 08:00 Resp 16 09/12/17 08:00 BP 131/57 L 09/12/17 08:00 Pulse Ox 95 09/12/17 08:00 Weight - Most Recent: 45.405 kg I&O - Last 24 Hours: Intake & Output 09/11/17 09/12/17 09/12/17 22:59 06:59 14:59 Intake Total 250 Output Total 800 Balance -550 Lab Results Last 24 Hours: Laboratory Results - last 24 hr 09/12/17 09/12/17 Range/Units 05:01 05:01 WBC 5.26 (4.0-11.0) K/uL RBC 3.18 L (4.30-5.90) M/uL Hgb 7.5 L (12.0-16.0) g/dL Hct 25.3 L (36.0-46.0) % MCV 79.6 L (80.0-98.0) fL MCH 23.6 L (27.0-32.0) pg MCHC 29.6 L (31.0-37.0) g/dL RDW Std Deviation 58.4 (28.0-62.0) fl RDW Coeff of Sera 20 H (11.0-15.0) % Plt Count 275 (150-400) K/uL MPV 8.90 (7.40-12.00) fL Neut % (Auto) 71.1 (48.0-80.0) % Lymph % (Auto) 15.8 L (16.0-40.0) % [place] % (Auto) 12.5 (0.0-15.0) % Eos % (Auto) 0.6 (0.0-7.0) % Baso % (Auto) 0.0 (0.0-1.5) % Neut # (Auto) 3.7 (1.4-5.7) K/uL Lymph # (Auto) 0.8 (0.6-2.4) K/uL [place] # (Auto) 0.7 (0.0-0.8) K/uL Eos # (Auto) 0.0 (0.0-0.7) K/uL Baso # (Auto) 0.0 (0.0-0.1) K/uL Nucleated RBC % 0.0 /100WBC Nucleated RBCs # 0 K/uL Sodium 138 (136-146) mmol/L Potassium 4.7 (3.5-5.1) mmol/L Chloride 108 (98-110) mmol/L Carbon Dioxide 24 (21-31) mmol/L BUN 60 H (6.0-23.0) mg/dL Creatinine 1.2 (0.6-1.5) mg/dL Est Cr Clr Drug Dosing 23.38 mL/min Estimated GFR (MDRD) 42.6 ml/min Glucose 102 (60-110) mg/dL Calcium 8.5 L (8.8-10.8) mg/dL Total Bilirubin 0.5 (0.1-1.5) mg/dL AST 26 (5-40) IU/L ALT 12 (8-54) IU/L Alkaline Phosphatase 163 H (40-150) Total Protein 5.8 L (6.0-8.0) g/dL Albumin 2.9 L (3.4-4.8) g/dL Globulin 2.9 (2.0-3.5) g/dL Albumin/Globulin Ratio 1.0 L (1.3-2.8) Med Orders - Current: Current Medications Artificial Tears (Refresh Plus 0.5%) 1 each EYEBOTH BID [facility] Last Admin: 09/12/17 08:01 Dose: 1 drop Sodium Chloride (Normal Saline) 1,000 mls @ 75 mls/hr IV ASDIRECTED [facility] Last Admin: 09/12/17 00:14 Dose: 75 mls/hr Ceftriaxone Sodium/Dextrose 1 (gm/ Premix) 50 mls @ 100 mls/hr IV Q24H [facility] Lorazepam (Ativan) 0.5 mg PO BID PRN PRN Reason: Anxiety Magnesium Hydroxide (Milk Of Magnesia) 30 ml PO DAILY PRN PRN Reason: Constipation Pantoprazole Sodium (Protonix) 40 mg PO BIDAC [facility] Betaxolol Hcl [ (Betaxolol] 10 Mg) 1 each PO DAILY [facility] Last Admin: 09/12/17 09:00 Dose: 1 each Sodium Chloride (Saline Flush) 10 ml FLUSH ASDIRECTED PRN PRN Reason: Keep Vein Open Last Admin: 09/11/17 14:01 Dose: 10 ml Sodium Chloride (Saline Flush) 2.5 ml FLUSH ASDIRECTED PRN PRN Reason: Keep Vein Open Last Admin: 09/11/17 14:01 Dose: 2.5 ml Tramadol HCl (Ultram) 50 mg PO Q8H PRN PRN Reason: Pain/PT/Movement Last Admin: 09/12/17 06:20 Dose: 50 mg Triamterene/HCTZ (Maxzide 50-75 Mg) 1 each PO DAILY [facility] Last Admin: 09/12/17 08:01 Dose: 1 each Discontinued Medications Sodium Chloride (Normal Saline) 1,000 mls @ 70 mls/hr IV ASDIRECTED [facility] Last Admin: 09/11/17 14:01 Dose: 70 mls/hr Ceftriaxone Sodium/Dextrose 1 (gm/ Premix) 50 mls @ 100 mls/hr IV ONETIME ONE Stop: 09/11/17 15:10 Last Admin: 09/11/17 14:53 Dose: 100 mls/hr Pantoprazole Sodium 40 mg/ (Sodium Chloride) 10 mls @ 300 mls/hr IVPUSH NOW ONE Stop: 09/11/17 14:54 Last Admin: 09/11/17 15:35 Dose: 300 mls/hr Ceftriaxone Sodium/Dextrose 1 (gm/ Premix) 50 mls @ 100 mls/hr IV Q24H [facility] Last Admin: 09/11/17 16:02 Dose: Not Given Sodium Chloride (Normal Saline) Confirm Administered Dose 20 mls @ as directed .ROUTE .STK-MED ONE Stop: 09/11/17 15:38 Last Admin: 09/11/17 16:04 Dose: Not Given - Exam General: Alert, Oriented HEENT: Pupils Equal Lungs: Clear to Auscultation, Normal Respiratory Effort Cardiovascular: Regular Rate, Regular Rhythm GI/Abdominal Exam: Normal Bowel Sounds, Soft Extremities: Normal Inspection, No Pedal Edema - Problem List Review Problem List Initiated/Reviewed/Updated: Yes - My Orders Last 24 Hours: My Active Orders 09/12/17 17:00 Pantoprazole [ProTONIX] 40 mg PO BIDAC - Assessment Assessment:: Assessment #1. Anemia with heme positive stool #2. Urinary tract infection #3. Dehydration #4. History of dementia Plan #1. IV Rocephin for the urinary tract infection #2. Repeat H&H this evening. Last hemoglobin was 7.5. Given patient DNR/DNI, we' ll touch base with family if there is a need for possible transfusion. #3. Continue IV normal saline at 75 mL an hour 4. Follow-up on urine culture
[2017-09-12] MEDS: cefTRIAXone 1 GM in Premix Bag 1 BAG IV SCH (16:19)
[2017-09-12] MEDS: Pantoprazole 40 MG Tab.CR PO SCH (16:22)
[2017-09-13] MEDS: Sodium Chloride 0.9% 1,000 ML IV SCH (03:46)
[2017-09-13 05:57] LABS: CHLORIDE,CL 110 mmol/L (98-110); SODIUM,NA 138 mmol/L (136-146)
[2017-09-13] MEDS: Pantoprazole 40 MG Tab.CR PO SCH ×2 (06:34→17:31)
[2017-09-13] MEDS: traMADol 50 MG Tab PO PRN ×2 (07:58→17:31)
[2017-09-13] MEDS: Carboxymethylcellulose Sodium 0.5% Ophth Soln 0.4 ML UD Box of 30 EYEBOTH SCH ×2 (08:01→20:41)
[2017-09-13] MEDS: Hydrochlorothiazide/Triamterene 50-75 MG Tab PO SCH (08:03)
[2017-09-13] MEDS: BETAXOLOL HCL 10 MG PO SCH ×2 (08:05→13:32)
--- NOTE | 2017-09-13 09:30 | PCM.PN ---
- General Info Date of Service: 09/13/17 Subjective Update: No overnight events. Talking to the patient this morning, she states she has no complaints. Denies fever, chills, abdominal pain, dysuria. Urine culture + alpha streptococcus - Review of Systems General: Reports: Other (see HPI) - Patient Data Vitals - Most Recent: Last Vital Signs Temp 36.2 C 09/13/17 08:00 Pulse 80 09/13/17 08:00 Resp 20 09/13/17 08:00 BP 144/63 H 09/13/17 08:00 Pulse Ox 97 09/13/17 08:00 Weight - Most Recent: 45.405 kg I&O - Last 24 Hours: Intake & Output 09/12/17 09/13/17 09/13/17 22:59 06:59 14:59 Intake Total 615 1214 Output Total 950 800 Balance -335 414 Lab Results Last 24 Hours: Laboratory Results - last 24 hr 09/12/17 09/13/17 09/13/17 Range/Units 17:00 05:28 05:28 WBC 3.87 L (4.0-11.0) K/uL RBC 2.84 L (4.30-5.90) M/uL Hgb 6.9 L 6.6 L (12.0-16.0) g/dL Hct 23.1 L 22.4 L (36.0-46.0) % MCV 78.9 L (80.0-98.0) fL MCH 23.2 L (27.0-32.0) pg MCHC 29.5 L (31.0-37.0) g/dL RDW Std Deviation 58.4 (28.0-62.0) fl RDW Coeff of Sera 20 H (11.0-15.0) % Plt Count 240 (150-400) K/uL MPV 8.50 (7.40-12.00) fL Neut % (Auto) 66.6 (48.0-80.0) % Lymph % (Auto) 20.4 (16.0-40.0) % [place] % (Auto) 12.7 (0.0-15.0) % Eos % (Auto) 0.3 (0.0-7.0) % Baso % (Auto) 0.0 (0.0-1.5) % Neut # (Auto) 2.6 (1.4-5.7) K/uL Lymph # (Auto) 0.8 (0.6-2.4) K/uL [place] # (Auto) 0.5 (0.0-0.8) K/uL Eos # (Auto) 0.0 (0.0-0.7) K/uL Baso # (Auto) 0.0 (0.0-0.1) K/uL Nucleated RBC % 0.0 /100WBC Nucleated RBCs # 0 K/uL Sodium 138 (136-146) mmol/L Potassium 4.0 (3.5-5.1) mmol/L Chloride 110 (98-110) mmol/L Carbon Dioxide 22 (21-31) mmol/L BUN 40 H (6.0-23.0) mg/dL Creatinine 0.8 (0.6-1.5) mg/dL Est Cr Clr Drug Dosing 36.18 mL/min Estimated GFR (MDRD) > 60.0 ml/min Glucose 98 (60-110) mg/dL Calcium 8.4 L (8.8-10.8) mg/dL Med Orders - Current: Current Medications Artificial Tears (Refresh Plus 0.5%) 1 each EYEBOTH BID [facility] Last Admin: 09/13/17 08:01 Dose: 1 drop Sodium Chloride (Normal Saline) 1,000 mls @ 75 mls/hr IV ASDIRECTED [facility] Last Admin: 09/13/17 03:46 Dose: 75 mls/hr Ceftriaxone Sodium/Dextrose 1 (gm/ Premix) 50 mls @ 100 mls/hr IV Q24H [facility] Last Admin: 09/12/17 16:19 Dose: 100 mls/hr Lorazepam (Ativan) 0.5 mg PO BID PRN PRN Reason: Anxiety Magnesium Hydroxide (Milk Of Magnesia) 30 ml PO DAILY PRN PRN Reason: Constipation Pantoprazole Sodium (Protonix) 40 mg PO BIDAC [facility] Last Admin: 09/13/17 06:34 Dose: 40 mg Betaxolol Hcl [ (Betaxolol] 10 Mg) 1 each PO DAILY [facility] Last Admin: 09/13/17 08:05 Dose: Not Given Sodium Chloride (Saline Flush) 10 ml FLUSH ASDIRECTED PRN PRN Reason: Keep Vein Open Last Admin: 09/11/17 14:01 Dose: 10 ml Sodium Chloride (Saline Flush) 2.5 ml FLUSH ASDIRECTED PRN PRN Reason: Keep Vein Open Last Admin: 09/11/17 14:01 Dose: 2.5 ml Tramadol HCl (Ultram) 50 mg PO Q8H PRN PRN Reason: Pain/PT/Movement Last Admin: 09/13/17 07:58 Dose: 50 mg Triamterene/HCTZ (Maxzide 50-75 Mg) 1 each PO DAILY [facility] Last Admin: 09/13/17 08:03 Dose: 1 each Discontinued Medications Sodium Chloride (Normal Saline) 1,000 mls @ 70 mls/hr IV ASDIRECTED [facility] Last Admin: 09/11/17 14:01 Dose: 70 mls/hr Ceftriaxone Sodium/Dextrose 1 (gm/ Premix) 50 mls @ 100 mls/hr IV ONETIME ONE Stop: 09/11/17 15:10 Last Admin: 09/11/17 14:53 Dose: 100 mls/hr Pantoprazole Sodium 40 mg/ (Sodium Chloride) 10 mls @ 300 mls/hr IVPUSH NOW ONE Stop: 09/11/17 14:54 Last Admin: 09/11/17 15:35 Dose: 300 mls/hr Ceftriaxone Sodium/Dextrose 1 (gm/ Premix) 50 mls @ 100 mls/hr IV Q24H [facility] Last Admin: 09/11/17 16:02 Dose: Not Given Sodium Chloride (Normal Saline) Confirm Administered Dose 20 mls @ as directed .ROUTE .STK-MED ONE Stop: 09/11/17 15:38 Last Admin: 09/11/17 16:04 Dose: Not Given - Exam General: Alert, Oriented Lungs: Clear to Auscultation, Normal Respiratory Effort Cardiovascular: Regular Rate, Regular Rhythm, No Murmurs GI/Abdominal Exam: Normal Bowel Sounds, Soft, Non-Tender Back Exam: Normal Inspection, Full Range of Motion. No: CVA Tenderness (L), CVA Tenderness (R) - Problem List Review Problem List Initiated/Reviewed/Updated: Yes - My Orders Last 24 Hours: My Active Orders 09/12/17 17:00 Pantoprazole [ProTONIX] 40 mg PO BIDAC - Assessment Assessment:: Assessment #1. Anemia with heme positive stool #2. Urinary tract infection - urine culture + for alpha streptococcus #3. Dehydration #4. History of dementia Plan #1. IV Rocephin for the urinary tract infection #2. Last hemoglobin was 6.6 Given patient DNR/DNI, we'll touch base with power of family law attorney given need for transfusion. #3. Continue IV normal saline at 75 mL an hour
[2017-09-13] MEDS: cefTRIAXone 1 GM in Premix Bag 1 BAG IV SCH (15:42)
[2017-09-14 06:31] LABS: CHLORIDE,CL 104 mmol/L (98-110); SODIUM,NA 135 mmol/L (136-146)
[2017-09-14] MEDS: Pantoprazole 40 MG Tab.CR PO SCH (06:37)
[2017-09-14] MEDS: Hydrochlorothiazide/Triamterene 50-75 MG Tab PO SCH (08:49)
[2017-09-14] MEDS: Carboxymethylcellulose Sodium 0.5% Ophth Soln 0.4 ML UD Box of 30 EYEBOTH SCH (08:49)
[2017-09-14] MEDS: BETAXOLOL HCL 10 MG PO SCH (08:59)
--- NOTE | 2017-09-14 10:40 | PCM.DCSUM1 ---
Discharge Summary - Hospital Course HPI Initial Comments: She was admitted with diffuse weakness and anemia. She was noted to have a heme positive black stool in the emergency room. She was also noted to have evidence of a UTI. - Discharge Data Discharge Date: 09/14/17 Discharge Disposition: DC/Tfer to [facility] Condition: Stable - Patient Summary/Data Hospital Course: She was admitted with the diagnosis if anemia with heme positive stool, and with a UTI. She also has a history of advanced dementia. She was treated with Rocephin. Her urine culture is growing alpha strep and discharge. She was not transfused. I spoke with her sister Portillo Arredondo at [phone]. Sydni is her legal power of assistant district attorney and her only living relative. We decided to focus on comfort measures and pursue a hospice consult. Sydni told me that Adriana has suffered from chronic b ack pain and she hopes that we can control her pain. We decided not to transfuse her. Sydni is in agreement, desiring that we keep her comfortable. She is discharged back to [facility] today. I will recommend hospice consult at discharge. - Discharge Plan Home Medications: Home Meds Betaxolol HCl [Betaxolol] 10 mg PO DAILY 06/25/17 [History] Multivits,Ca,Minerals/Iron/FA [One-A-Day Women's] 1 tab PO DAILY 06/25/17 [ History] Triamterene/Hydrochlorothiazid [Triamterene-HCTZ 75-50 MG] 1 tab PO DAILY [History] Dextran 70/Hypromellose/PF [Artificial Tears Drops] 1 drop EYEBOTH BID 08/17/17 [History] Magnesium Hydroxide [Milk of Magnesia] 30 ml PO DAILY PRN 08/17/17 [History] Acetaminophen [Tylenol] 650 mg PO Q6H PRN 08/19/17 [History] Ferrous Sulfate 325 mg PO WITHBREAKFAST 08/19/17 [History] atorvaSTATin [Lipitor] 80 mg PO BEDTIME 7 Days #7 tablet 08/21/17 [Rx] traMADol HCl [Ultram] 50 mg PO Q8H PRN #30 tablet 08/21/17 [Rx] Aspirin 325 mg PO DAILY 09/11/17 [History] Docusate Sodium [Colace] 100 mg PO DAILY 09/11/17 [History] LORazepam [Ativan] 0.5 mg PO BID PRN 09/11/17 [History] Patient Handouts: Shortness of Breath, [id number], Dementia, [id number] Referrals: eJan Ortiz MD [Primary Care Provider] - - Patient Data Vitals - Most Recent: Last Vital Signs Temp 98.0 F 09/14/17 08:00 Pulse 76 09/14/17 08:00 Resp 14 09/14/17 08:00 BP 125/60 09/14/17 08:00 Pulse Ox 96 09/14/17 08:00 Weight - Most Recent: 45.405 kg I&O - Last 24 hours: Intake & Output 09/13/17 09/14/17 09/14/17 22:59 06:59 14:59 Intake Total 468 150 Output Total 750 750 Balance -282 -600 Lab Results - Last 24 hrs: Laboratory Results - last 24 hr 09/13/17 09/14/17 09/14/17 Range/Units 15:08 05:37 05:37 WBC 4.05 (4.0-11.0) K/uL RBC 2.74 L (4.30-5.90) M/uL Hgb 6.7 L 6.4 L (12.0-16.0) g/dL Hct 21.7 L 21.6 L (36.0-46.0) % MCV 78.8 L (80.0-98.0) fL MCH 23.4 L (27.0-32.0) pg MCHC 29.6 L (31.0-37.0) g/dL RDW Std Deviation 58.0 (28.0-62.0) fl RDW Coeff of Sera 20 H (11.0-15.0) % Plt Count 245 (150-400) K/uL MPV 8.80 (7.40-12.00) fL Neut % (Auto) 62.8 (48.0-80.0) % Lymph % (Auto) 22.0 (16.0-40.0) % Coleman % (Auto) 14.3 (0.0-15.0) % Eos % (Auto) 0.7 (0.0-7.0) % Baso % (Auto) 0.2 (0.0-1.5) % Neut # (Auto) 2.5 (1.4-5.7) K/uL Lymph # (Auto) 0.9 (0.6-2.4) K/uL Coleman # (Auto) 0.6 (0.0-0.8) K/uL Eos # (Auto) 0.0 (0.0-0.7) K/uL Baso # (Auto) 0.0 (0.0-0.1) K/uL Nucleated RBC % 0.0 /100WBC Nucleated RBCs # 0 K/uL Sodium 135 L (136-146) mmol/L Potassium 3.7 (3.5-5.1) mmol/L Chloride 104 (98-110) mmol/L Carbon Dioxide 25 (21-31) mmol/L BUN 30 H (6.0-23.0) mg/dL Creatinine 0.8 (0.6-1.5) mg/dL Est Cr Clr Drug Dosing 36.18 mL/min Estimated GFR (MDRD) > 60.0 ml/min Glucose 98 (60-110) mg/dL Calcium 8.9 (8.8-10.8) mg/dL Med Orders - Current: Current Medications Artificial Tears (Refresh Plus 0.5%) 1 each EYEBOTH BID [facility] Last Admin: 09/14/17 08:49 Dose: 1 applic Ceftriaxone Sodium/Dextrose 1 (gm/ Premix) 50 mls @ 100 mls/hr IV Q24H [facility] Last Admin: 09/13/17 15:42 Dose: 100 mls/hr Lorazepam (Ativan) 0.5 mg PO BID PRN PRN Reason: Anxiety Magnesium Hydroxide (Milk Of Magnesia) 30 ml PO DAILY PRN PRN Reason: Constipation Pantoprazole Sodium (Protonix) 40 mg PO BIDAC [facility] Last Admin: 09/14/17 06:37 Dose: 40 mg Betaxolol Hcl [ (Betaxolol] 10 Mg) 1 each PO DAILY [facility] Last Admin: 09/14/17 08:59 Dose: 1 each Sodium Chloride (Saline Flush) 10 ml FLUSH ASDIRECTED PRN PRN Reason: Keep Vein Open Last Admin: 09/11/17 14:01 Dose: 10 ml Sodium Chloride (Saline Flush) 2.5 ml FLUSH ASDIRECTED PRN PRN Reason: Keep Vein Open Last Admin: 09/11/17 14:01 Dose: 2.5 ml Tramadol HCl (Ultram) 50 mg PO Q8H PRN PRN Reason: Pain/PT/Movement Last Admin: 09/13/17 17:31 Dose: 50 mg Triamterene/HCTZ (Maxzide 50-75 Mg) 1 each PO DAILY [facility] Last Admin: 09/14/17 08:49 Dose: 1 each Discontinued Medications Sodium Chloride (Normal Saline) 1,000 mls @ 70 mls/hr IV ASDIRECTED [facility] Last Admin: 09/11/17 14:01 Dose: 70 mls/hr Ceftriaxone Sodium/Dextrose 1 (gm/ Premix) 50 mls @ 100 mls/hr IV ONETIME ONE Stop: 09/11/17 15:10 Last Admin: 09/11/17 14:53 Dose: 100 mls/hr Pantoprazole Sodium 40 mg/ (Sodium Chloride) 10 mls @ 300 mls/hr IVPUSH NOW ONE Stop: 09/11/17 14:54 Last Admin: 09/11/17 15:35 Dose: 300 mls/hr Sodium Chloride (Normal Saline) 1,000 mls @ 75 mls/hr IV ASDIRECTED [facility] Last Admin: 09/13/17 03:46 Dose: 75 mls/hr Ceftriaxone Sodium/Dextrose 1 (gm/ Premix) 50 mls @ 100 mls/hr IV Q24H [facility] Last Admin: 09/11/17 16:02 Dose: Not Given Sodium Chloride (Normal Saline) Confirm Administered Dose 20 mls @ as directed .ROUTE .STK-MED ONE Stop: 09/11/17 15:38 Last Admin: 09/11/17 16:04 Dose: Not Given *Q Meaningful Use (DIS) - VTE *Q VTE Criteria *Q: VTE Mechanical Contraindications *Q: At Risk for Falls VTE Pharmacological Contraindications *Q: Risk of Bleeding - Stroke *Q Stroke Criteria *Q: - AMI *Q AMI Criteria *Q:
[2017-09-14 12:54] VITALS: BP 138/63
== END 2017-09-14 12:35 | DRG 812 ==
LOC: MW.ED 12:41 → MW.ICU 15:19 → MW.MS 09-12 12:24
PROVIDERS: ADMIT Internal Medicine; ATTEND Internal Medicine
DX: D50.9 Iron deficiency anemia, unspecified (principal); N39.0 Urinary tract infection, site not specified; I69.354 Hemiplegia and hemiparesis following cerebral infarction affecting left non-dominant side; B95.4 Other streptococcus as the cause of diseases classified elsewhere; E86.0 Dehydration; R19.5 Other fecal abnormalities; I10 Essential (primary) hypertension; E78.00 Pure hypercholesterolemia, unspecified; R41.82 Altered mental status, unspecified; F03.90 Unspecified dementia, unspecified severity, without behavioral disturbance, psychotic disturbance, mood disturbance, and anxiety; R29.90 Unspecified symptoms and signs involving the nervous system; Z51.5 Encounter for palliative care; Z66 Do not resuscitate; Z79.899 Other long term (current) drug therapy
CPT/HCPCS: 36415; 70450; 71010; 80053; 81001; 82962; 84443; 84484; 85025; 85610; 86850; 86900; 86901; 87086; 93005; 96361; 96365; 99285; J0696; J7040; 51702; 80048; 85014; 85018; 96375; 99284; A9270-GY; C9113